=== PATIENT | female | born 1945 | race Caucasian/White ===

== ENCOUNTER → 2017-06-22 | Outpatient (CLI) | payer MEDICARE ==
[~2017-06-22] MED LIST: ASP81TEC PO; FEXO180T PO; FLUO20CA42 PO; GLUC1CAP45 PO; HYDR25CA5 PO; METO-333 PO; METO50TA7 PO; NIAC250T17 PO; NICIAN PO; OMEG1CAP51 PO; OMEG1CAP74 PO; OMG1KC PO; PREN1TAB64 PO; SIMV80TA3 PO; TRAV5DRO2 OU; VNL37.5T PO; [UNRECOGNIZED DRUG - OTHER]
--- NOTE | 2017-06-23 13:44 | Diagnostic Imaging Report ---
Bilateral screening mammogram 2D views with tomosynthesis The current study was also evaluated with a Computer Aided Detection (CAD) system. INDICATION: Screening. No current complaints stated on the questionnaire. COMPARISON: 02/09/2015. FINDINGS: The breasts are composed of heterogeneously dense parenchyma which may decrease mammographic sensitivity. There is no mass, architectural distortion, or suspicious cluster of calcifications seen. Allowing for technique and positional differences, no suspicious change is seen. IMPRESSION: No significant change. ACR BI-RADS Category 2: Benign findings. Result letter will be mailed to the patient. Note: At least 10% of breast cancer is not imaged by mammography. Dictated on workstation # [id number]
== END ==
LOC: RAD 10:35
PROVIDERS: ATTEND Family Medicine
DX: Z12.31 Encounter for screening mammogram for malignant neoplasm of breast (principal)
CPT/HCPCS: 77067

== ENCOUNTER → 2018-07-11 | Outpatient (CLI) | payer MEDICARE ==
--- NOTE | 2018-07-11 12:05 | Diagnostic Imaging Report ---
INDICATION: Routine screening. COMPARISON: Comparison is made with prior mammograms from 06/22/2017 and 02/09/2015. TECHNIQUE: 2D and 3D bilateral screening mammography was performed with computer-aided detection (CAD) system. FINDINGS: Both breasts are heterogeneously dense, limiting the sensitivity of mammography. An ovoid nodular density in the central left breast on the CC view appears stable and most consistent with benign etiology. There is some nodularity to the outer portion of the left breast on the CC view at posterior depth, which appears more prominent when compared with prior exams. Additional views of this area are recommended. No definite correlate on the MLO view is seen. No suspicious calcifications are identified. The axillae are unremarkable. IMPRESSION: Left breast density. Additional views are recommended for further evaluation. ACR BI-RADS Category 0: Incomplete. (Needs additional imaging evaluation). Result letter will be mailed to the patient. Note: At least 10% of breast cancer is not imaged by mammography. Dictated by: Dictated on workstation # [id number]
== END ==
LOC: RAD 10:35
PROVIDERS: ATTEND Family Medicine
DX: Z12.31 Encounter for screening mammogram for malignant neoplasm of breast (principal); R92.8 Other abnormal and inconclusive findings on diagnostic imaging of breast
CPT/HCPCS: 77067

== ENCOUNTER → 2018-08-13 | Outpatient (CLI) | payer MEDICARE ==
--- NOTE | 2018-08-13 15:45 | Diagnostic Imaging Report ---
Indication: Left breast density. Patient presents for additional views. Correlation is made with recent screening mammogram from 07/11/2018. Unilateral left 2-D and 3-D diagnostic mammography was performed including spot compression cc and ML views as well as 90 degree lateral view and rolled cc views. There is mild residual density in the outer aspect of the left breast which appears to be inferiorly located on the tomographic images. Further evaluation of this area with ultrasound is recommended. No suspicious calcifications are seen. Impression: BI-RADS zero Mild residual density in the lower outer left breast posterior depth 10 cm from the nipple after additional views. Further evaluation with ultrasound is recommended. ACR BI-RADS Category 0: Incomplete. (Needs additional imaging evaluation). Result letter will be mailed to the patient. Note: At least 10% of breast cancer is not imaged by mammography. Dictated by: Dictated on workstation # [id number]
--- NOTE | 2018-08-13 20:30 | Diagnostic Imaging Report ---
INDICATION: Right breast nodularity. Correlation is made with diagnostic mammogram earlier the same day and screening mammogram from 07/11/2018. Sonographic interrogation of the lower outer left breast was performed. No sonographic abnormality is seen. No solid or cystic mass is detected. IMPRESSION: BI-RADS 1. No sonographic abnormality is seen. The patient may return to routine annual screening mammography. ACR BI-RADS Category 1: Negative. Result letter will be mailed to the patient. Note: At least 10% of breast cancer is not imaged by mammography. Dictated by: Dictated on workstation # [id number]
== END ==
LOC: RAD 14:03
PROVIDERS: ATTEND Family Medicine
DX: R92.2 Inconclusive mammogram (principal)
CPT/HCPCS: 76642

== ENCOUNTER 2019-03-26 12:47 | Observation (INO) | payer MEDICARE ==
[~2019-03-26] VITALS: Ht 165.1 cm; Wt 76.2 kg
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
[2019-03-26 13:06] LABS: BASOPHILS % (AUTO) 1 % (0-10); EOSINOPHILS # (AUTO) 0.1 10^3/uL (0.0-0.3); EOSINOPHILS % (AUTO) 1 % (0-10); HEMATOCRIT 40 % (35-52); HEMOGLOBIN 13.1 G/DL (11.5-16.0); LYMPHOCYTES # (AUTO) 1.8 X 10^3 (1.0-4.0); LYMPHOCYTES % (AUTO) 21 % (12-44); MEAN CORPUSCULAR HEMOGLOBIN 29 PG (25-34); MEAN CORPUSCULAR HGB CONC 33 G/DL (32-36); MEAN CORPUSCULAR VOLUME 88 FL (80-99); MEAN PLATELET VOLUME 9.4 FL (7.4-10.4); MONOCYTES # (AUTO) 0.7 X 10^3 (0.0-1.0); MONOCYTES % (AUTO) 8 % (0-12); NEUTROPHILS # (AUTO) 5.8 X 10^3 (1.8-7.8); NEUTROPHILS % (AUTO) 70 % (42-75); PLATELET COUNT 253 10^3/uL (130-400); RED CELL DISTRIBUTION WIDTH 13.6 % (10.0-14.5); WHITE BLOOD COUNT 8.4 10^3/uL (4.3-11.0)
--- OUTSIDE RECORDS SUMMARY | 2019-03-26 13:13 | XMS REPORT | Clinical Summary ---
Author Author [facility] Organization [facility] Address Unknown Phone Unavailable Care Team Providers Care Yield Analyst Name Role Phone ZackMiles PCP Sammy Nuñez MD 21 Source Comments Some departments are not documenting in the electronic medical record. If you d o not see the information that you expected, contact Release of Information in [facility] [employer] Information Management department at [phone] for further assistan ce in locating additional records.[facility] Allergies Comments Active Allergy Reactions Severity Noted Date Adhesive Tape (Rosins) RASH Medium 06/21/2017 Medications End Date Status Medication Sig Dispensed Refills Start Date Active LORazepam (ATIVAN) 0.5 mg Take 1 tablet 0 tablet by mouth every 6 hours as needed for Nausea. Active lamoTRIgine (LAMICTAL) Take 100 mg 0 100 mg tablet by mouth daily. Active venlafaxine XR (EFFEXOR Take 150 mg 0 XR) 150 mg capsule by mouth daily. Take with food. Active brexpiprazole 2 mg tab Take by 0 mouth. Active simvastatin (ZOCOR) 20 mg Take 20 mg by 0 tablet mouth at bedtime daily. Active docusate (COLACE) 100 mg Take 100 mg 0 capsule by mouth twice daily. Active memantine (NAMENDA) 10 mg Take 10 mg by 0 tablet mouth twice daily. Active omeprazole DR(+) Take 20 mg by 0 (PRILOSEC) 20 mg capsule mouth daily before breakfast. Active aspirin 81 mg chewable Chew 81 mg by 0 tablet mouth daily. Take with food. Active DOCOSAHEXANOIC ACID/EPA Take by 0 (FISH OIL PO) mouth. Active MULTIVITAMIN PO Take by 0 mouth. Active lisinopril (PRINIVIL; Take 10 mg by 0 ZESTRIL) 10 mg tablet mouth daily. Active Problems Not on file Family History Medical History Relation Name Comments Heart Disease Brother Hypertension Brother Arthritis-osteo Maternal Aunt Cancer-Breast Maternal Aunt Hypertension Maternal Aunt Arthritis-osteo Mother Asthma Mother Cancer-Breast Mother Cancer-Lung Mother Hypertension Mother Cancer-Breast Sister Hypertension Sister Relation Name Status Comments Brother Maternal Aunt Mother Sister Social History Date Tobacco Use Types Packs/Day Years Used Never Smoker Smokeless Tobacco: Never Used Drinks/Week oz/Week Comments Alcohol Use No Sex Assigned at Date Recorded Not on file Industry Job Start Date Occupation Not on file Not on file Not on file Travel End Travel History Travel Start No recent travel history available. Last Filed Vital Signs Reading Time Taken Comments Vital Sign 120/57 06/21/2017 10:19 AM CDT Blood Pressure 70 06/21/2017 10:19 AM CDT Pulse 36.7 C (98 F) 06/21/2017 9:59 AM CDT Temperature 14 06/13/2017 1:40 PM CDT Respiratory Rate 96% 06/21/2017 10:19 AM CDT Oxygen Saturation - - Inhaled Oxygen Concentration 71.7 kg (158 lb) 06/21/2017 8:46 AM CDT Weight 162.6 cm (5' 4") 06/21/2017 8:46 AM CDT Height 27.12 06/21/2017 8:46 AM CDT Body Mass Index Plan of Treatment Health Maintenance Due Date Last Done Comments PHYSICAL (COMPREHENSIVE) 1950 EXAM DTAP/TDAP VACCINES (1 - 1961 Tdap) COLORECTAL CANCER 1993 SCREENING SHINGLES RECOMBINANT 1993 VACCINE (1 of 2) OSTEOPOROSIS 2008 SCREENING/MONITORING PNEUMONIA (PCV13/PPSV23) 2008 VACCINES (1 of 2 - PCV13) INFLUENZA VACCINE 06/11/2019 Results Not on filefrom Last 3 Months Insurance Type Payer Benefit Subscriber ID Effective Phone Address Plan / Dates Group Medicare MEDICARE MEDICARE xxxxxxxxxx 2008-P PART A AND resent B PPO [facility] xxxxxxxxxxx 2016-P resent Advance Directives Patient Email Production Consultant Explanation Type Date Recorded Advance Directive/DPOA
--- OUTSIDE RECORDS SUMMARY | 2019-03-26 13:13 | XMS REPORT ---
Author Author NASIM SINGH Organization [facility] Address [address] [place] [address] Care Team Providers Care Manager In Home Name Role Phone SAMANTHAELGINNASIM Unavailable PROBLEMS Type Condition ICD9-CM Code [id number] Code Onset Dates Condition Status SNOMED Code Problem Bipolar I disorder with anxious distress F31.9 Active [id number] ALLERGIES No Information ENCOUNTERS Encounter Location Date Diagnosis [facility] [id number] [place] [phone] May, Bipolar I disorder with anxious distress F31.9 [facility] [id number] [place] [address] Apr, Bipolar I disorder with anxious distress F31.9 [facility] [id number] [place] [address] Mar, Bipolar I disorder with anxious distress F31.9 [facility] [id number] [place] [address] Feb, Bipolar I disorder with anxious distress F31.9 [facility] [id number] [place] [address] Dec, Bipolar I disorder with anxious distress F31.9 [facility] [id number] [place] [address] Nov, Bipolar I disorder with anxious distress F31.9 [facility] [id number] [place] [address] Oct, Bipolar I disorder with anxious distress F31.9 [facility] [id number] [place] [address] Sep, Bipolar I disorder with anxious distress F31.9 [facility] [address] [facility] [id number] [address] Jul, Bipolar I disorder with anxious distress F31.9 [facility] [address] [address] Jun, Bipolar I disorder with anxious distress F31.9 [facility] [address] [address] Jun, Bipolar I disorder with anxious distress F31.9 [facility] [id number] [place] [phone] Apr, Bipolar I disorder with anxious distress F31.9 [facility] [id number] [place] [phone] Mar, Bipolar I disorder with anxious distress F31.9 [facility] [id number] [place] [address] Mar, Bipolar II disorder F31.81 [facility] [address] [address] Feb, [facility] [id number] [place] [address] Feb, Bipolar II disorder F31.81 [facility] [address] [address] January, Bipolar II disorder F31.81 [facility] [address] [address] January, Bipolar II disorder F31.81 [facility] [address] [address] January, Bipolar II disorder F31.81 [facility] [address] [address] Dec, Bipolar II disorder F31.81 [facility] [address] [address] Nov, Bipolar II disorder F31.81 [facility] [id number] [address] Jul, Bipolar II disorder F31.81 [facility] [id number] [address] Jun, Bipolar II disorder F31.81 [facility] [address] [address] May, Bipolar II disorder F31.81 [facility] [id number] [address] May, Bipolar II disorder F31.81 [facility] [id number] [place] [address] May, Bipolar II disorder F31.81 [facility] [address] [place] [address] Apr, Bipolar II disorder F31.81 [facility] [address] [address] Apr, Bipolar II disorder F31.81 [facility] [id number] [place] [address] Mar, Bipolar II disorder F31.81 [facility] [address] [address] Mar, Bipolar II disorder F31.81 [facility] [address] [address] Feb, Bipolar II disorder F31.81 [facility] [address] [address] January, Bipolar II disorder F31.81 [facility] [address] [address] January, Bipolar II disorder F31.81 [facility] [address] [address] Dec, Bipolar II disorder F31.81 [facility] [address] [address] Nov, Bipolar II disorder F31.81 [facility] [address] [address] Oct, Bipolar II disorder F31.81 [facility] [address] [address] Oct, Bipolar II disorder F31.81 [facility] [address] [address] Sep, Bipolar II disorder F31.81 [facility] [address] [address] Jul, Bipolar II disorder F31.81 [facility] [address] [address] Jun, Bipolar II disorder F31.81 [facility] [address] [address] Jun, Bipolar II disorder F31.81 [facility] [address] [address] May, Bipolar II disorder 296.89 [facility] [id number] [address] Apr, Bipolar II disorder 296.89 IMMUNIZATIONS No Known Immunizations SOCIAL HISTORY Never Assessed REASON FOR VISIT Follow-up Bipolar Disorder PLAN OF CARE Activity Details Follow Up Next available Reason: Follow-up VITAL SIGNS MEDICATIONS Unknown Medications RESULTS No Results PROCEDURES Procedure Date Ordered Result Body Site [facility] VISIT MENTAL HEALTH ESTAB PT Apr 23, 2018 Psychotherapy, patient &/family, 30 minutes, established patient Apr 23, 2018 INSTRUCTIONS MEDICATIONS ADMINISTERED No Known Medications
--- OUTSIDE RECORDS SUMMARY | 2019-03-26 13:13 | XMS REPORT ---
Author Author NASIM SINGH Organization [facility] Address [address] [place] [address] Care Team Providers Care Coffee Blender Name Role Phone SAMANTHAELGNINASIM Unavailable PROBLEMS Type Condition ICD9-CM Code [id number] Code Onset Dates Condition Status SNOMED Code Problem Bipolar I disorder with anxious distress F31.9 Active [id number] ALLERGIES No Information ENCOUNTERS Encounter Location Date Diagnosis [facility] [id number] [place] [address] May, Bipolar I disorder with anxious distress F31.9 [facility] [id number] [place] [address] Apr, Bipolar I disorder with anxious distress F31.9 [facility] [id number] [place] [address] Mar, Bipolar I disorder with anxious distress F31.9 [facility] [id number] [place] [address] Feb, Bipolar I disorder with anxious distress F31.9 [facility] [id number] [place] [address] Dec, Bipolar I disorder with anxious distress F31.9 [facility] [id number] [place] [address] Nov, Bipolar I disorder with anxious distress F31.9 [facility] [id number] [place] [address] Oct, Bipolar I disorder with anxious distress F31.9 [facility] [id number] [place] [address] Sep, Bipolar I disorder with anxious distress F31.9 [facility] [address] [facility] [id number] [address] Jul, Bipolar I disorder with anxious distress F31.9 [facility] [address] [address] Jun, Bipolar I disorder with anxious distress F31.9 [facility] [address], [place] [address] Jun, Bipolar I disorder with anxious distress F31.9 [facility] [id number] [place] [address] Apr, Bipolar I disorder with anxious distress F31.9 [facility] [address] [place] [address] Mar, Bipolar I disorder with anxious distress F31.9 [facility] [address] [place] [address] Mar, Bipolar II disorder F31.81 [facility] [address] [address] Feb, [facility] [address] [place] [address] Feb, Bipolar II disorder F31.81 [facility] [address] [address] January, Bipolar II disorder F31.81 [facility] [address] [address] January, Bipolar II disorder F31.81 [facility] [address] [address] January, Bipolar II disorder F31.81 [facility] [address] [address] Dec, Bipolar II disorder F31.81 [facility] [address], [place] [address] Nov, Bipolar II disorder F31.81 [facility] [id number] [address] Jul, Bipolar II disorder F31.81 [facility] [id number] [address] Jun, Bipolar II disorder F31.81 [facility] [address], [place] [address] May, Bipolar II disorder F31.81 [facility] [id number] [address] May, Bipolar II disorder F31.81 [facility] [id number] [place] [address] May, Bipolar II disorder F31.81 [facility] [address], [place] [address] Apr, Bipolar II disorder F31.81 [facility] [address], [place] [address] Apr, Bipolar II disorder F31.81 [facility] [address] [place] [address] Mar, Bipolar II disorder F31.81 [facility] [address], [place] [address] Mar, Bipolar II disorder F31.81 [facility] [address], [place] [address] Feb, Bipolar II disorder F31.81 [facility] [address], [place] [address] January, Bipolar II disorder F31.81 [facility] [address], [place] [address] January, Bipolar II disorder F31.81 [facility] [address], [place] [address] Dec, Bipolar II disorder F31.81 [facility] [address], [place] [address] Nov, Bipolar II disorder F31.81 [facility] [address], [place] [address] Oct, Bipolar II disorder F31.81 [facility] [address], [place] [address] Oct, Bipolar II disorder F31.81 [facility] [address], [place] [address] Sep, Bipolar II disorder F31.81 [facility] [address], [place] [address] Jul, Bipolar II disorder F31.81 [facility] [address], [place] [address] Jun, Bipolar II disorder F31.81 [facility] [address], [place] [address] Jun, Bipolar II disorder F31.81 [facility] [address], [place] [address] May, Bipolar II disorder 296.89 [facility] [id number] [address] Apr, Bipolar II disorder 296.89 IMMUNIZATIONS No Known Immunizations SOCIAL HISTORY Never Assessed REASON FOR VISIT Follow-up Bipolar Disorder PLAN OF CARE VITAL SIGNS MEDICATIONS Unknown Medications RESULTS No Results PROCEDURES Procedure Date Ordered Result Body Site [facility] VISIT MENTAL HEALTH ESTAB PT May 29, 2018 Psychotherapy, patient &/family, 30 minutes, established patient May 29, 2018 INSTRUCTIONS MEDICATIONS ADMINISTERED No Known Medications
--- OUTSIDE RECORDS SUMMARY | 2019-03-26 13:14 | XMS REPORT ---
Author Author NASIM SINGH Organization [facility] Address [address] [place] [address] Care Team Providers Care Project Management Consultant Name Role Phone SAMANTHAELGINNASIM Unavailable PROBLEMS Type Condition ICD9-CM Code [id number] Code Onset Dates Condition Status SNOMED Code Problem Bipolar I disorder with anxious distress F31.9 Active [id number] ALLERGIES No Information ENCOUNTERS Encounter Location Date Diagnosis [facility] [id number] [place] [address] May, [place] [id number] [place] [address] Apr, Bipolar I disorder with anxious distress F31.9 [facility] [id number] [place] [address] Mar, Bipolar I disorder with anxious distress F31.9 [facility] [id number] [place] [address] Feb, Bipolar I disorder with anxious distress F31.9 [facility] [id number] [place] [address] Dec, Bipolar I disorder with anxious distress F31.9 [facility] [id number] [place] [address] Nov, Bipolar I disorder with anxious distress F31.9 [facility] [id number] [place] [address] Oct, Bipolar I disorder with anxious distress F31.9 [facility] [id number] [place] [address] Sep, Bipolar I disorder with anxious distress F31.9 [facility] [id number] [address] Jul, Bipolar I disorder with anxious distress F31.9 [facility] [address], [place] [address] Jun, Bipolar I disorder with anxious distress F31.9 [facility] [address], [place] [address] Jun, Bipolar I disorder with anxious distress F31.9 [facility] [id number] [address] Apr, Bipolar I disorder with anxious distress F31.9 [facility] [address] [place] [address] Mar, Bipolar I disorder with anxious distress F31.9 [facility] [address], [place] [address] Mar, Bipolar II disorder F31.81 [facility] [address], [place] [address] Feb, [facility] [address] [place] [address] Feb, Bipolar II disorder F31.81 [facility] [address], [place] [address] January, Bipolar II disorder F31.81 [facility] [address] [address] January, Bipolar II disorder F31.81 [facility] [address], [place] [address] January, Bipolar II disorder F31.81 [facility] [address], [place] [address] Dec, Bipolar II disorder F31.81 [facility] [address], [place] [address] Nov, Bipolar II disorder F31.81 [facility] [address] [facility] [id number] [address] Jul, Bipolar II disorder F31.81 [facility] [address] [facility] [id number], [place] [address] Jun, Bipolar II disorder F31.81 [facility] [id number] [address] May, Bipolar II disorder F31.81 [facility] [address] [facility] [id number] [place] [address] May, Bipolar II disorder F31.81 [facility] [address] [facility] [id number] [place] [address] May, Bipolar II disorder F31.81 [facility] [address], [place] [address] Apr, Bipolar II disorder F31.81 [facility] [address], [place] [address] Apr, Bipolar II disorder F31.81 [facility] [address] [address] Mar, Bipolar II disorder F31.81 [facility] [address], [place] [address] Mar, Bipolar II disorder F31.81 [facility] [address], [place] [address] Feb, Bipolar II disorder F31.81 [facility] [id number] [address] January, Bipolar II disorder F31.81 [facility] [id number] [address] January, Bipolar II disorder F31.81 [facility] [address], [place] [address] Dec, Bipolar II disorder F31.81 [facility] [address], [place] [address] Nov, Bipolar II disorder F31.81 [facility] [address], [place] [address] Oct, Bipolar II disorder F31.81 [facility] [address], [place] [address] Oct, Bipolar II disorder F31.81 [facility] [address], [place] [address] Sep, Bipolar II disorder F31.81 [facility] [address] [place] [address] Jul, Bipolar II disorder F31.81 [facility] [address], [place] [address] Jun, Bipolar II disorder F31.81 [facility] [address], [place] [address] Jun, Bipolar II disorder F31.81 [facility] [address], [place] [address] May, Bipolar II disorder 296.89 [facility] [address], [place] [address] Apr, Bipolar II disorder 296.89 IMMUNIZATIONS No Known Immunizations SOCIAL HISTORY Never Assessed REASON FOR VISIT Follow-up Bipolar Disorder PLAN OF CARE Activity Details Follow Up 4 Weeks Reason: Follow-up VITAL SIGNS MEDICATIONS Unknown Medications RESULTS No Results PROCEDURES Procedure Date Ordered Result Body Site [facility] VISIT MENTAL HEALTH ESTAB PT March 15, 2018 Psychotherapy, patient &/family, 30 minutes, established patient March 15, 2018 INSTRUCTIONS MEDICATIONS ADMINISTERED No Known Medications
--- OUTSIDE RECORDS SUMMARY | 2019-03-26 13:14 | XMS REPORT ---
Author Author NASIM SINGH Organization [facility] Address [address] [place] [address] Care Team Providers Care Pill Machine Operator Name Role Phone SAMANTHAELGINNASIM Unavailable PROBLEMS Type Condition ICD9-CM Code [id number] Code Onset Dates Condition Status SNOMED Code Problem Bipolar I disorder with anxious distress F31.9 Active [id number] ALLERGIES No Information ENCOUNTERS Encounter Location Date Diagnosis [place] [id number] [place] [address] Mar, [place] [id number] [place] [address] Feb, Bipolar I disorder with anxious distress F31.9 [facility] [id number] [place] [address] Dec, Bipolar I disorder with anxious distress F31.9 [facility] [id number] [place] [address] Nov, Bipolar I disorder with anxious distress F31.9 [facility] [id number] [place] [address] Oct, Bipolar I disorder with anxious distress F31.9 [facility] [id number] [place] [address] Sep, Bipolar I disorder with anxious distress F31.9 [facility] [id number] [place] [address] Jul, Bipolar I disorder with anxious distress F31.9 [facility] [id number] [place] [address] Jun, Bipolar I disorder with anxious distress F31.9 [facility] [id number] [address] Jun, Bipolar I disorder with anxious distress F31.9 [facility] [address] [facility] [id number] [place] [address] Apr, Bipolar I disorder with anxious distress F31.9 [facility] [id number] [place] [address] Mar, Bipolar I disorder with anxious distress F31.9 [facility] [address] [facility] [id number] [address] Mar, Bipolar II disorder F31.81 [facility] [address] [id number] [place] [address] Feb, [facility] [address] [facility] [id number] [address] Feb, Bipolar II disorder F31.81 [facility] [address] [place] [address] January, Bipolar II disorder F31.81 [facility] [id number] [address] January, Bipolar II disorder F31.81 [facility] [id number] [address] January, Bipolar II disorder F31.81 [facility] [address] [address] Dec, Bipolar II disorder F31.81 [facility] [id number] [address] Nov, Bipolar II disorder F31.81 [facility] [id number] [address] Jul, Bipolar II disorder F31.81 [facility] [id number] [address] Jun, Bipolar II disorder F31.81 [facility] [address] [facility] [id number] [address] May, Bipolar II disorder F31.81 [facility] [address] [facility] [id number] [place] [address] May, Bipolar II disorder F31.81 [facility] [address] [id number] [place] [address] May, Bipolar II disorder F31.81 [facility] [address] [id number] [place] [address] Apr, Bipolar II disorder F31.81 [facility] [id number] [place] [address], [place] [address] Apr, Bipolar II disorder F31.81 [facility] [address] [place] [address] Mar, Bipolar II disorder F31.81 [facility] [address] [address] Mar, Bipolar II disorder F31.81 [facility] [address] [place] [address] Feb, Bipolar II disorder F31.81 [facility] [address] [address] January, Bipolar II disorder F31.81 [facility] [address] [address] January, Bipolar II disorder F31.81 [facility] [address] [address] Dec, Bipolar II disorder F31.81 [facility] [id number] [address] Nov, Bipolar II disorder F31.81 [facility] [address] [address] Oct, Bipolar II disorder F31.81 [facility] [id number] [address] 08 Oct, 2015 Bipolar II disorder F31.81 [facility] [address] [address] Sep, Bipolar II disorder F31.81 [facility] [address] [address] Jul, Bipolar II disorder F31.81 [facility] [address] [address] Jun, Bipolar II disorder F31.81 [facility] [address] [place] [address] Jun, Bipolar II disorder F31.81 [facility] [address] [address] May, Bipolar II disorder 296.89 [facility] [address] [address] Apr, Bipolar II disorder 296.89 IMMUNIZATIONS No Known Immunizations SOCIAL HISTORY Never Assessed REASON FOR VISIT Follow-up Bipolar Disorder PLAN OF CARE Activity Details Follow Up Next available Reason: Follow-up VITAL SIGNS MEDICATIONS Unknown Medications RESULTS No Results PROCEDURES Procedure Date Ordered Result Body Site [facility] VISIT MENTAL HEALTH ESTAB PT Oct 23, 2017 Psychotherapy, patient &/family, 30 minutes, established patient Oct 23, 2017 INSTRUCTIONS MEDICATIONS ADMINISTERED No Known Medications
--- OUTSIDE RECORDS SUMMARY | 2019-03-26 13:14 | XMS REPORT ---
Author RADHA Doyle [facility] e[employer] Address Unknown Phone Unavailable Care Team Providers Care Branch Credit Counselor Name Role Phone RADHA LEUNG CP Unavailable Allergies No Known Allergies Problems Problem Type Condition Code Onset Dates Condition Status Assessment Bipolar II disorder F31.81 Active Problem Bipolar II disorder F31.81 Active Medications No Known Medications Procedures Procedure Coding System Code Date Psychotherapy, patient &/family, 45 minutes, established patient CPT-4 09730 Jun 23, 2016 [facility] VISIT MENTAL HEALTH ESTAB PT CPT-4 G0470 Jun 23, 2016 Results No Known Results Summary Purpose eClinicalWorks Submission
--- OUTSIDE RECORDS SUMMARY | 2019-03-26 13:14 | XMS REPORT ---
Author Author RADHA LEUNG Organization [facility] Address [address] [place] [address] Care Team Providers Care Brim Cutter Name Role Phone RADHA LEUNG Unavailable PROBLEMS Type Condition ICD9-CM Code [id number] Code Onset Dates Condition Status SNOMED Code Problem Bipolar II disorder F31.81 Active [id number] Assessment Bipolar II disorder F31.81 May, Active [id number] ALLERGIES Unknown Allergies SOCIAL HISTORY No smoking Hx information available PLAN OF CARE VITAL SIGNS MEDICATIONS Unknown Medications RESULTS No Results PROCEDURES Procedure Date Ordered Related Diagnosis Body Site [facility] VISIT MENTAL HEALTH ESTAB PT May 26, 2016 Psychotherapy, patient &/family, 45 minutes, established patient May 26, 2016 IMMUNIZATIONS No Known Immunizations
--- OUTSIDE RECORDS SUMMARY | 2019-03-26 13:14 | XMS REPORT ---
Author Author RADHA LEUNG [facility] eClinical[employer] Address Unknown Phone Unavailable Care Team Providers Care Salon Coordinator Name Role Phone RADHA LEUNG CP Unavailable Allergies No Known Allergies Problems Problem Type Condition Code Onset Dates Condition Status Assessment Bipolar II disorder F31.81 Active Problem Bipolar II disorder F31.81 Active Medications No Known Medications Procedures Procedure Coding System Code Date Psychotherapy, patient &/family, 45 minutes, established patient CPT-4 85288 March 16, 2016 [facility] VISIT MENTAL HEALTH ESTAB PT CPT-4 G0470 March 16, 2016 Results No Known Results Summary Purpose eClinicalWorks Submission
--- OUTSIDE RECORDS SUMMARY | 2019-03-26 13:14 | XMS REPORT ---
Author RADHA Doyle [facility] eClinical[employer] Address Unknown Phone Unavailable Care Team Providers Care Melter Caster Name Role Phone RADHA LEUNG CP Unavailable Allergies No Known Allergies Problems Problem Type Condition Code Onset Dates Condition Status Assessment Bipolar II disorder F31.81 Active Problem Bipolar II disorder F31.81 Active Medications No Known Medications Procedures Procedure Coding System Code Date Psychotherapy, patient &/family, 45 minutes, established patient CPT-4 08133 Jul 28, 2016 [facility] VISIT MENTAL HEALTH ESTAB PT CPT-4 G0470 Jul 28, 2016 Results No Known Results Summary Purpose eClinicalWorks Submission
--- OUTSIDE RECORDS SUMMARY | 2019-03-26 13:14 | XMS REPORT ---
Author Author RADHA LEUNG [facility] eClinical[employer] Address Unknown Phone Unavailable Care Team Providers Care Wood Sash And Frame Carpenter Name Role Phone RADHA LEUNG CP Unavailable Allergies No Known Allergies Problems Problem Type Condition Code Onset Dates Condition Status Assessment Bipolar II disorder F31.81 Active Problem Bipolar II disorder F31.81 Active Medications No Known Medications Procedures Procedure Coding System Code Date Psychotherapy, patient &/family, 45 minutes, established patient CPT-4 98642 Oct 19, 2015 [facility] VISIT MENTAL HEALTH ESTAB PT CPT-4 G0470 Oct 19, 2015 Results No Known Results Summary Purpose eClinicalWorks Submission
--- OUTSIDE RECORDS SUMMARY | 2019-03-26 13:14 | XMS REPORT ---
Author Author NASIM SINGH [facility] Address [facility] [place] [address] Care Team Providers Care Small Package And Bundle Sorter Clerk Name Role Phone NASIM SINGH Unavailable PROBLEMS Type Condition ICD9-CM Code [id number] Code Onset Dates Condition Status SNOMED Code Problem Bipolar I disorder with anxious distress F31.9 Active [id number] ALLERGIES No Information SOCIAL HISTORY Never Assessed PLAN OF CARE Activity Details Follow Up 2 Weeks Reason: Follow-up VITAL SIGNS MEDICATIONS Unknown Medications RESULTS No Results PROCEDURES Procedure Date Ordered Result Body Site [facility] MENT[facility] HEALTH ESTAB PT February 08, 2017 Psychotherapy, patient &/family, 45 minutes, established patient February 08, 2017 IMMUNIZATIONS No Known Immunizations
--- OUTSIDE RECORDS SUMMARY | 2019-03-26 13:14 | XMS REPORT ---
Author Author NASIM SINGH Organization [facility] Address [address] [place] [address] Care Team Providers Care Transitional Living Specialist Name Role Phone SAMANTHAELGINNASIM Unavailable PROBLEMS Type Condition ICD9-CM Code [id number] Code Onset Dates Condition Status SNOMED Code Problem Bipolar I disorder with anxious distress F31.9 Active [id number] ALLERGIES No Information ENCOUNTERS Encounter Location Date Diagnosis [facility] [id number] [place] [address] Apr, [place] [id number] [place] [address] Mar, Bipolar I disorder with anxious distress F31.9 [facility] [id number] [place] [address] Feb, Bipolar I disorder with anxious distress F31.9 [facility] [id number] [place] [address] Dec, Bipolar I disorder with anxious distress F31.9 [facility] [id number] [place] [address] Nov, Bipolar I disorder with anxious distress F31.9 [facility] [id number] [place] [address] Oct, Bipolar I disorder with anxious distress F31.9 [facility] [id number] [place] [address] Sep, Bipolar I disorder with anxious distress F31.9 [facility] [id number] [place] [address] Jul, Bipolar I disorder with anxious distress F31.9 [facility] [id number] [address] Jun, Bipolar I disorder with anxious distress F31.9 [facility] [address] [place] [address] Jun, Bipolar I disorder with anxious distress F31.9 [facility] [address] [address] Apr, Bipolar I disorder with anxious distress F31.9 [facility] [address] [address] Mar, Bipolar I disorder with anxious distress F31.9 [facility] [address] [place] [address] Mar, Bipolar II disorder F31.81 [facility] [address] [address] Feb, [facility] [address] [place] [address] Feb, Bipolar II disorder F31.81 [facility] [address] [place] [address] January, Bipolar II disorder F31.81 [facility] [address] [address] January, Bipolar II disorder F31.81 [facility] [address] [address] January, Bipolar II disorder F31.81 [facility] [address] [address] Dec, Bipolar II disorder F31.81 [facility] [address] [place] [address] Nov, Bipolar II disorder F31.81 [facility] [address] [address] Jul, Bipolar II disorder F31.81 [facility] [id number] [address] Jun, Bipolar II disorder F31.81 [facility] [id number] [address] May, Bipolar II disorder F31.81 [facility] [address] [place] [address] May, Bipolar II disorder F31.81 [facility] [id number] [place] [address], [place] [address] May, Bipolar II disorder F31.81 [facility] [id number] [place] [address], [place] [address] Apr, Bipolar II disorder F31.81 [facility] [address] [place] [address] Apr, Bipolar II disorder F31.81 [facility] [address] [place] [address] Mar, Bipolar II disorder F31.81 [facility] [address] [place] [address] Mar, Bipolar II disorder F31.81 [facility] [address] [address] Feb, Bipolar II disorder F31.81 [facility] [address] [place] [address] January, Bipolar II disorder F31.81 [facility] [id number] [address] January, Bipolar II disorder F31.81 [facility] [id number] [address] Dec, Bipolar II disorder F31.81 [facility] [address] [address] Nov, Bipolar II disorder F31.81 [facility] [address] [address] Oct, Bipolar II disorder F31.81 [facility] [address] [address] Oct, Bipolar II disorder F31.81 [facility] [address] [place] [address] Sep, Bipolar II disorder F31.81 [facility] [address] [place] [address] Jul, Bipolar II disorder F31.81 [facility] [id number] [place] [address] Jun, Bipolar II disorder F31.81 [facility] [address] [place] [address] Jun, Bipolar II disorder F31.81 [facility] [address] [place] [address] May, Bipolar II disorder 296.89 [facility] [address] [place] [address] Apr, Bipolar II disorder 296.89 IMMUNIZATIONS No Known Immunizations SOCIAL HISTORY Never Assessed REASON FOR VISIT Follow-up Bipolar Disorder PLAN OF CARE Activity Details Follow Up 4 Weeks Reason: Follow-up VITAL SIGNS MEDICATIONS Unknown Medications RESULTS No Results PROCEDURES Procedure Date Ordered Result Body Site [facility] VISIT MENTAL HEALTH ESTAB PT January 08, 2018 Psychotherapy, patient &/family, 30 minutes, established patient January 08, 2018 INSTRUCTIONS MEDICATIONS ADMINISTERED No Known Medications
--- OUTSIDE RECORDS SUMMARY | 2019-03-26 13:14 | XMS REPORT ---
Author Author NASIM SINGH Organization [facility] Address [address] [place] [address] Care Team Providers Care Trolley Car Operator Name Role Phone SAMANTHAELGINNASIM Unavailable PROBLEMS Type Condition ICD9-CM Code COG12-OJ Code Onset Dates Condition Status SNOMED Code Problem Bipolar I disorder with anxious distress F31.9 Active [id number] ALLERGIES No Information ENCOUNTERS Encounter Location Date Diagnosis [facility] [id number] [place] [address] Apr, [place] [id number] [place] [address] Mar, Bipolar I disorder with anxious distress F31.9 [facility] [id number] [place] [address] Feb, Bipolar I disorder with anxious distress F31.9 [facility] [id number] [place] [address] Dec, Bipolar I disorder with anxious distress F31.9 [facility] [id number] [place] [address] Nov, Bipolar I disorder with anxious distress F31.9 [facility] [id number] [place] [address] Oct, Bipolar I disorder with anxious distress F31.9 [facility] [id number] [place] [address] Sep, Bipolar I disorder with anxious distress F31.9 [facility] [id number] [place] [address] Jul, Bipolar I disorder with anxious distress F31.9 [facility] [id number], [place] [address] Jun, Bipolar I disorder with anxious distress F31.9 [facility] [address] [place] [address] Jun, Bipolar I disorder with anxious distress F31.9 [facility] [address], [place] [address] Apr, Bipolar I disorder with anxious distress F31.9 [facility] [address], [place] [address] Mar, Bipolar I disorder with anxious distress F31.9 [facility] [address] [place] [address] Mar, Bipolar II disorder F31.81 [facility] [address], [place] [address] Feb, [facility] [address] [place] [address] Feb, Bipolar II disorder F31.81 [facility] [address] [place] [address] January, Bipolar II disorder F31.81 [facility] [address], [place] [address] January, Bipolar II disorder F31.81 [facility] [address], [place] [address] January, Bipolar II disorder F31.81 [facility] [address], [place] [address] Dec, Bipolar II disorder F31.81 [facility] [address] [place] [address] Nov, Bipolar II disorder F31.81 [facility] [address], [place] [address] Jul, Bipolar II disorder F31.81 [facility] [id number], [place] [address] Jun, Bipolar II disorder F31.81 [facility] [id number], [place] [address] May, Bipolar II disorder F31.81 [facility] [address] [place] [address] May, Bipolar II disorder F31.81 [facility] [id number] [place] [address], [place] [address] May, Bipolar II disorder F31.81 [facility] [id number] [place] [address], [place] [address] Apr, Bipolar II disorder F31.81 [facility] [address] [place] [address] Apr, Bipolar II disorder F31.81 [facility] [address] [place] [address] Mar, Bipolar II disorder F31.81 [facility] [address] [place] [address] Mar, Bipolar II disorder F31.81 [facility] [address], [place] [address] Feb, Bipolar II disorder F31.81 [facility] [address] [place] [address] January, Bipolar II disorder F31.81 [facility] [id number], [place] [address] January, Bipolar II disorder F31.81 [facility] [id number], [place] [address] Dec, Bipolar II disorder F31.81 [facility] [address], [place] [address] Nov, Bipolar II disorder F31.81 [facility] [address], [place] [address] Oct, Bipolar II disorder F31.81 [facility] [address], [place] [address] Oct, Bipolar II disorder F31.81 [facility] [address] [place] [address] Sep, Bipolar II disorder F31.81 [facility] [id number] [place] [address] Jul, Bipolar II disorder F31.81 [facility] [id number] [place] [address] Jun, Bipolar II disorder F31.81 [facility] [address] [place] [address] Jun, Bipolar II disorder F31.81 [facility] [address] [place] [address] May, Bipolar II disorder 296.89 [facility] [address] [place] [address] Apr, Bipolar II disorder 296.89 IMMUNIZATIONS No Known Immunizations SOCIAL HISTORY Never Assessed REASON FOR VISIT Follow-up Bipolar Disorder PLAN OF CARE Activity Details Follow Up 4 Weeks Reason: Follow-up VITAL SIGNS MEDICATIONS Unknown Medications RESULTS No Results PROCEDURES Procedure Date Ordered Result Body Site [facility] VISIT MENTAL HEALTH ESTAB PT December 04, 2017 Psychotherapy, patient &/family, 45 minutes, established patient December 04, 2017 INSTRUCTIONS MEDICATIONS ADMINISTERED No Known Medications
--- OUTSIDE RECORDS SUMMARY | 2019-03-26 13:14 | XMS REPORT ---
Author Author NASIM SINGH Organization [facility] Address [address] [place] [address] Care Team Providers Care Compensation Coordinator Name Role Phone SAMANTHAELGINNASIM Unavailable PROBLEMS Type Condition ICD9-CM Code NDG53-UP Code Onset Dates Condition Status SNOMED Code Problem Bipolar I disorder with anxious distress F31.9 Active [id number] ALLERGIES No Information ENCOUNTERS Encounter Location Date Diagnosis [facility] [id number] [place] [address] May, [place] [id number] [place] [address] Apr, Bipolar I disorder with anxious distress F31.9 [facility] [id number] [place] [address] Mar, Bipolar I disorder with anxious distress F31.9 [facility] [id number] [place] [address] Feb, Bipolar I disorder with anxious distress F31.9 [facility] [id number] [place] [address] Dec, Bipolar I disorder with anxious distress F31.9 [facility] [id number] [place] [address] Nov, Bipolar I disorder with anxious distress F31.9 [facility] [id number] [place] [address] Oct, Bipolar I disorder with anxious distress F31.9 [facility] [id number] [place] [address] Sep, Bipolar I disorder with anxious distress F31.9 [facility] [id number] [address] Jul, Bipolar I disorder with anxious distress F31.9 [facility] [address], [place] [address] Jun, Bipolar I disorder with anxious distress F31.9 [facility] [address], [place] [address] Jun, Bipolar I disorder with anxious distress F31.9 [facility] [id number] [address] Apr, Bipolar I disorder with anxious distress F31.9 [facility] [address] [place] [address] Mar, Bipolar I disorder with anxious distress F31.9 [facility] [address], [place] [address] Mar, Bipolar II disorder F31.81 [facility] [address], [place] [address] Feb, [facility] [address] [place] [address] Feb, Bipolar II disorder F31.81 [facility] [address], [place] [address] January, Bipolar II disorder F31.81 [facility] [address], [place] [address] January, Bipolar II disorder F31.81 [facility] [address], [place] [address] January, Bipolar II disorder F31.81 [facility] [address], [place] [address] Dec, Bipolar II disorder F31.81 [facility] [address], [place] [address] Nov, Bipolar II disorder F31.81 [facility] [address] [facility] [id number] [address] Jul, Bipolar II disorder F31.81 [facility] [address] [facility] [id number] [address] Jun, Bipolar II disorder F31.81 [facility] [id number] [address] May, Bipolar II disorder F31.81 [facility] [address] [facility] [id number] [place] [address] May, Bipolar II disorder F31.81 [facility] [address] [facility] [id number] [place] [address] May, Bipolar II disorder F31.81 [facility] [address], [place] [address] Apr, Bipolar II disorder F31.81 [facility] [address], [place] [address] Apr, Bipolar II disorder F31.81 [facility] [address] [place] [address] Mar, Bipolar II disorder F31.81 [facility] [address], [place] [address] Mar, Bipolar II disorder F31.81 [facility] [address], [place] [address] Feb, Bipolar II disorder F31.81 [facility] [id number] [address] January, Bipolar II disorder F31.81 [facility] [id number] [address] January, Bipolar II disorder F31.81 [facility] [address], [place] [address] Dec, Bipolar II disorder F31.81 [facility] [address], [place] [address] Nov, Bipolar II disorder F31.81 [facility] [address], [place] [address] Oct, Bipolar II disorder F31.81 [facility] [address], [place] [address] Oct, Bipolar II disorder F31.81 [facility] [address], [place] [address] Sep, Bipolar II disorder F31.81 [facility] [address] [place] [address] Jul, Bipolar II disorder F31.81 [facility] [address], [place] [address] Jun, Bipolar II disorder F31.81 [facility] [address], [place] [address] Jun, Bipolar II disorder F31.81 [facility] [address], [place] [address] May, Bipolar II disorder 296.89 [facility] [address], [place] [address] Apr, Bipolar II disorder 296.89 IMMUNIZATIONS No Known Immunizations SOCIAL HISTORY Never Assessed REASON FOR VISIT Follow-up Bipolar Disorder PLAN OF CARE Activity Details Follow Up 4 Weeks Reason: Follow-up VITAL SIGNS MEDICATIONS Unknown Medications RESULTS No Results PROCEDURES Procedure Date Ordered Result Body Site [facility] VISIT MENTAL HEALTH ESTAB PT February 13, 2018 Psychotherapy, patient &/family, 30 minutes, established patient February 13, 2018 INSTRUCTIONS MEDICATIONS ADMINISTERED No Known Medications
--- OUTSIDE RECORDS SUMMARY | 2019-03-26 13:15 | XMS REPORT ---
Author Author NASIM SINGH [facility] Address [facility] [place] [address] Care Team Providers Care Tree Sapper Name Role Phone NASIM SINGH Unavailable PROBLEMS Type Condition ICD9-CM Code [id number] Code Onset Dates Condition Status SNOMED Code Problem Bipolar I disorder with anxious distress F31.9 Active [id number] ALLERGIES No Information SOCIAL HISTORY Never Assessed PLAN OF CARE Activity Details Follow Up Next available Reason:BH Follow-up VITAL SIGNS MEDICATIONS Medication Instructions Dosage Frequency Start Date End Date Duration Status BusPIRone HCl Active Lamotrigine Active Venlafaxine HCl ER Active Omeprazole Active Colace Active Simvastatin Active Latanoprost Active Lisinopril Active Lorazepam Active RESULTS No Results PROCEDURES Procedure Date Ordered Result Body Site [facility] VISIT MENTAL HEALTH ESTAB PT November 29, 2016 Psychotherapy, patient &/family, 30 minutes, established patient November 29, 2016 IMMUNIZATIONS No Known Immunizations
--- OUTSIDE RECORDS SUMMARY | 2019-03-26 13:15 | XMS REPORT ---
Author Author NASIM SINGH Organization [facility] Address [address] [place] [address] Care Team Providers Care Rheumatology Nurse Name Role Phone SAMANTHAELGINNASIM Unavailable PROBLEMS Type Condition ICD9-CM Code GZF29-FZ Code Onset Dates Condition Status SNOMED Code Problem Bipolar I disorder with anxious distress F31.9 Active [id number] ALLERGIES No Information ENCOUNTERS Encounter Location Date Diagnosis [facility] [id number] [place] [address] Dec, [place] [id number] [place] [address] Nov, Bipolar I disorder with anxious distress F31.9 [facility] [id number] [place] [address] Oct, Bipolar I disorder with anxious distress F31.9 [facility] [id number] [place] [address] Sep, Bipolar I disorder with anxious distress F31.9 [facility] [id number] [place] [address] Jul, Bipolar I disorder with anxious distress F31.9 [facility] [id number] [place] [address] Jun, Bipolar I disorder with anxious distress F31.9 [facility] [id number] [place] [address] Jun, Bipolar I disorder with anxious distress F31.9 [facility] [id number] [place] [address] Apr, Bipolar I disorder with anxious distress F31.9 [facility] [id number] [address] Mar, Bipolar I disorder with anxious distress F31.9 [facility] [address] [place] [address] Mar, Bipolar II disorder F31.81 [facility] [address] [place] [address] Feb, [facility] [id number] [place] [address] Feb, Bipolar II disorder F31.81 [facility] [address] [place] [address] January, Bipolar II disorder F31.81 [facility] [address] [place] [address] January, Bipolar II disorder F31.81 [facility] [address] [place] [address] January, Bipolar II disorder F31.81 [facility] [address] [place] [address] Dec, Bipolar II disorder F31.81 [facility] [address] [address] Nov, Bipolar II disorder F31.81 [facility] [address] [place] [address] Jul, Bipolar II disorder F31.81 [facility] [address] [address] Jun, Bipolar II disorder F31.81 [facility] [address] [place] [address] 23 May, 2016 Bipolar II disorder F31.81 [facility] [address] [address] 15 May, 2016 Bipolar II disorder F31.81 [facility] [address] [address] May, Bipolar II disorder F31.81 [facility] [address] [place] [address], [place] [address] Apr, Bipolar II disorder F31.81 [facility] [address] [place] [address] Apr, Bipolar II disorder F31.81 [facility] [address] [place] [address] Mar, Bipolar II disorder F31.81 [facility] [address] [place] [address] Mar, Bipolar II disorder F31.81 [facility] [address] [place] [address] Feb, Bipolar II disorder F31.81 [facility] [address] [place] [address] January, Bipolar II disorder F31.81 [facility] [address] [place] [address] January, Bipolar II disorder F31.81 [facility] [address] [address] Dec, Bipolar II disorder F31.81 [facility] [address] [place] [address] Nov, Bipolar II disorder F31.81 [facility] [address] [address] Oct, Bipolar II disorder F31.81 [facility] [address] [place] [address] Oct, Bipolar II disorder F31.81 [facility] [address] [address] Sep, Bipolar II disorder F31.81 [facility] [id number] [address] Jul, Bipolar II disorder F31.81 [facility] [id number] [address] Jun, Bipolar II disorder F31.81 [facility] [id number] [address] Jun, Bipolar II disorder F31.81 [facility] [id number] [address] May, Bipolar II disorder 296.89 [facility] [id number] [address] Apr, Bipolar II disorder 296.89 IMMUNIZATIONS No Known Immunizations SOCIAL HISTORY Never Assessed REASON FOR VISIT Follow-up Bipolar Disorder PLAN OF CARE Activity Details Follow Up Next available Reason: Follow-up VITAL SIGNS MEDICATIONS Unknown Medications RESULTS No Results PROCEDURES Procedure Date Ordered Result Body Site [facility] VISIT MENTAL HEALTH ESTAB PT Apr 18, 2017 Psychotherapy, patient &/family, 45 minutes, established patient Apr 18, 2017 INSTRUCTIONS MEDICATIONS ADMINISTERED No Known Medications
--- OUTSIDE RECORDS SUMMARY | 2019-03-26 13:15 | XMS REPORT ---
Author Author RADHA LEUNG Organization [facility] [place] Address [address] [place] [address] Care Team Providers Care Pasting Inspector Name Role Phone RADHA LEUNG Unavailable PROBLEMS Type Condition ICD9-CM Code [id number] Code Onset Dates Condition Status SNOMED Code Problem Bipolar II disorder F31.81 Active [id number] Assessment Bipolar II disorder F31.81 May, Active 63220995 ALLERGIES Unknown Allergies SOCIAL HISTORY No smoking Hx information available PLAN OF CARE VITAL SIGNS MEDICATIONS Unknown Medications RESULTS No Results PROCEDURES Procedure Date Ordered Related Diagnosis Body Site [facility] VISIT MENTAL HEALTH ESTAB PT Jun 03, 2016 Psychotherapy, patient &/family, 45 minutes, established patient Jun 03, 2016 IMMUNIZATIONS No Known Immunizations
--- OUTSIDE RECORDS SUMMARY | 2019-03-26 13:15 | XMS REPORT ---
Author Author NASIM SINGH Organization [facility] Address [address] [place] [address] Care Team Providers Care Front Office Manager Name Role Phone SAMANTHAELGINNASIM Unavailable PROBLEMS Type Condition ICD9-CM Code CQR45-HK Code Onset Dates Condition Status SNOMED Code Problem Bipolar I disorder with anxious distress F31.9 Active 059369248 ALLERGIES No Information ENCOUNTERS Encounter Location Date Diagnosis [facility] [id number] [place] [address] Dec, [place] [id number] [place] [address] Nov, Bipolar I disorder with anxious distress F31.9 [facility] [id number] [place] [address] Oct, Bipolar I disorder with anxious distress F31.9 [facility] [id number] [place] [address] Sep, Bipolar I disorder with anxious distress F31.9 [facility] [id number] [place] [address] Jul, Bipolar I disorder with anxious distress F31.9 [facility] [id number] [place] [address] Jun, Bipolar I disorder with anxious distress F31.9 [facility] [id number] [place] [address] Jun, Bipolar I disorder with anxious distress F31.9 [facility] [id number] [place] [address] Apr, Bipolar I disorder with anxious distress F31.9 [facility] [address] [address] Mar, Bipolar I disorder with anxious distress F31.9 [facility] [address] [place] [address] Mar, Bipolar II disorder F31.81 [facility] [address] [place] [address] Feb, [facility] [id number] [place] [address] Feb, Bipolar II disorder F31.81 [facility] [address] [place] [address] January, Bipolar II disorder F31.81 [facility] [address] [place] [address] January, Bipolar II disorder F31.81 [facility] [address] [place] [address] January, Bipolar II disorder F31.81 [facility] [address] [place] [address] Dec, Bipolar II disorder F31.81 [facility] [address], [place] [address] Nov, Bipolar II disorder F31.81 [facility] [address] [place] [address] Jul, Bipolar II disorder F31.81 [facility] [address] [address] Jun, Bipolar II disorder F31.81 [facility] [address] [place] [address] 23 May, 2016 Bipolar II disorder F31.81 [facility] [address], [place] [address] 15 May, 2016 Bipolar II disorder F31.81 [facility] [address] [address] May, Bipolar II disorder F31.81 [facility] [address] [place] [address], [place] [address] Apr, Bipolar II disorder F31.81 [facility] [address] [place] [address] Apr, Bipolar II disorder F31.81 [facility] [address] [place] [address] Mar, Bipolar II disorder F31.81 [facility] [address] [place] [address] Mar, Bipolar II disorder F31.81 [facility] [address] [place] [address] Feb, Bipolar II disorder F31.81 [facility] [address] [place] [address] January, Bipolar II disorder F31.81 [facility] [address] [place] [address] January, Bipolar II disorder F31.81 [facility] [address], [place] [address] Dec, Bipolar II disorder F31.81 [facility] [address] [place] [address] Nov, Bipolar II disorder F31.81 [facility] [address], [place] [address] Oct, Bipolar II disorder F31.81 [facility] [address] [place] [address] Oct, Bipolar II disorder F31.81 [facility] [address] [address] Sep, Bipolar II disorder F31.81 [facility] [id number] [address] Jul, Bipolar II disorder F31.81 [facility] [id number] [address] Jun, Bipolar II disorder F31.81 [facility] [id number] [address] Jun, Bipolar II disorder F31.81 [facility] [address], [place] [address] May, Bipolar II disorder 296.89 [facility] [id number], [place] [address] Apr, Bipolar II disorder 296.89 IMMUNIZATIONS No Known Immunizations SOCIAL HISTORY Never Assessed REASON FOR VISIT Follow-up Bipolar Disorder PLAN OF CARE Activity Details Follow Up 2 Weeks Reason: Follow-up VITAL SIGNS MEDICATIONS Unknown Medications RESULTS No Results PROCEDURES Procedure Date Ordered Result Body Site [facility] VISIT MENTAL HEALTH ESTAB PT April 04, 2017 Psychotherapy, patient &/family, 45 minutes, established patient April 04, 2017 INSTRUCTIONS MEDICATIONS ADMINISTERED No Known Medications
--- OUTSIDE RECORDS SUMMARY | 2019-03-26 13:15 | XMS REPORT ---
Author Author RADHA LEUNG Organization [employer] Address Unknown Phone Unavailable Care Team Providers Care Hosiery Mater Name Role Phone RADHA LEUNG CP Unavailable Allergies No Known Allergies Problems Problem Type Condition ICD-9 Code Onset Dates Condition Status Assessment Bipolar II disorder 296.89 Active Medications No Known Medications Procedures Procedure Coding System Code Date Psych diagnostic evaluation, new patient CPT-4 94695 May 08, 2015 [facility] VISIT MENTAL HEALTH NEW PT CPT-4 G0469 May 08, 2015 Results No Known Results Summary Purpose [employer] Submission
--- OUTSIDE RECORDS SUMMARY | 2019-03-26 13:15 | XMS REPORT ---
Author Author RADHA LEUNG [facility] [employer] Address Unknown Phone Unavailable Care Team Providers Care Operating Room Specialist Name Role Phone RADHA LEUNG CP Unavailable Allergies No Known Allergies Problems Problem Type Condition Code Onset Dates Condition Status Assessment Bipolar II disorder F31.81 Active Problem Bipolar II disorder F31.81 Active Medications No Known Medications Procedures Procedure Coding System Code Date Psychotherapy, patient &/family, 45 minutes, established patient CPT-4 11052 Jun 17, 2015 [facility] VISIT MENTAL HEALTH ESTAB PT CPT-4 G0470 Jun 17, 2015 Results No Known Results Summary Purpose [employer] Submission
--- OUTSIDE RECORDS SUMMARY | 2019-03-26 13:15 | XMS REPORT ---
Author Author NASIM SINGH [facility] Address [facility] [place] [address] Care Team Providers Care Training Assistant Name Role Phone NASIM SINGH Unavailable PROBLEMS Type Condition ICD9-CM Code XXL82-QR Code Onset Dates Condition Status SNOMED Code Problem Bipolar I disorder with anxious distress F31.9 Active [id number] ALLERGIES No Information SOCIAL HISTORY Never Assessed PLAN OF CARE Activity Details Follow Up 2 Weeks Reason: Follow-up VITAL SIGNS MEDICATIONS Unknown Medications RESULTS No Results PROCEDURES Procedure Date Ordered Result Body Site [facility] VISIT MENTAL HEALTH ESTAB PT January 11, 2017 Psychotherapy, patient &/family, 45 minutes, established patient January 11, 2017 IMMUNIZATIONS No Known Immunizations
--- OUTSIDE RECORDS SUMMARY | 2019-03-26 13:15 | XMS REPORT ---
Author Author RADHA LEUNG [facility] [employer] Address Unknown Phone Unavailable Care Team Providers Care Vp Medical Name Role Phone RADHA LEUNG CP Unavailable Allergies No Known Allergies Problems Problem Type Condition Code Onset Dates Condition Status Assessment Bipolar II disorder F31.81 Active Problem Bipolar II disorder F31.81 Active Medications No Known Medications Procedures Procedure Coding System Code Date Psychotherapy, patient &/family, 45 minutes, established patient CPT-4 14494 Jul 10, 2015 [facility] VISIT MENTAL HEALTH ESTAB PT CPT-4 G0470 Jul 10, 2015 Results No Known Results Summary Purpose [employer] Submission
--- OUTSIDE RECORDS SUMMARY | 2019-03-26 13:15 | XMS REPORT ---
Author Author NASIM SINGH Organization [facility] Address [address] [place] [address] Care Team Providers Care Painter Name Role Phone SAMANTHAELGINNASIM Unavailable PROBLEMS Type Condition ICD9-CM Code YFR39-ST Code Onset Dates Condition Status SNOMED Code Problem Bipolar I disorder with anxious distress F31.9 Active 144656709 ALLERGIES No Information ENCOUNTERS Encounter Location Date Diagnosis [facility] [id number] [place] [address] Feb, [place] [id number] [place] [address] Dec, Bipolar I disorder with anxious distress F31.9 [facility] [id number] [place] [address] Nov, Bipolar I disorder with anxious distress F31.9 [facility] [id number] [place] [address] Oct, Bipolar I disorder with anxious distress F31.9 [facility] [id number] [place] [address] Sep, Bipolar I disorder with anxious distress F31.9 [facility] [id number] [place] [address] Jul, Bipolar I disorder with anxious distress F31.9 [facility] [id number] [place] [address] Jun, Bipolar I disorder with anxious distress F31.9 [facility] [id number] [place] [address] Jun, Bipolar I disorder with anxious distress F31.9 [facility] [id number] [place] [address] Apr, Bipolar I disorder with anxious distress F31.9 [facility] [address], [place] [address] Mar, Bipolar I disorder with anxious distress F31.9 [facility] [address], [place] [address] Mar, Bipolar II disorder F31.81 [facility] [address], [place] [address] Feb, [facility] [id number] [place] [address] Feb, Bipolar II disorder F31.81 [facility] [address], [place] [address] January, Bipolar II disorder F31.81 [facility] [address], [place] [address] January, Bipolar II disorder F31.81 [facility] [address] [place] [address] January, Bipolar II disorder F31.81 [facility] [address], [place] [address] Dec, Bipolar II disorder F31.81 [facility] [address] [place] [address] Nov, Bipolar II disorder F31.81 [facility] [id number] [address] Jul, Bipolar II disorder F31.81 [facility] [address], [place] [address] Jun, Bipolar II disorder F31.81 [facility] [address] [place] [address] May, Bipolar II disorder F31.81 [facility] [address] [place] [address] 15 May, 2016 Bipolar II disorder F31.81 [facility] [id number] [place] [address] May, Bipolar II disorder F31.81 [facility] [id number] [place] [address] Apr, Bipolar II disorder F31.81 [facility] [address] [place] [address] Apr, Bipolar II disorder F31.81 [facility] [address] [place] [address], [place] [address] Mar, Bipolar II disorder F31.81 [facility] [address], [place] [address] Mar, Bipolar II disorder F31.81 [facility] [address] [place] [address] Feb, Bipolar II disorder F31.81 [facility] [address] [place] [address] January, Bipolar II disorder F31.81 [facility] [address], [place] [address] January, Bipolar II disorder F31.81 [facility] [address], [place] [address] Dec, Bipolar II disorder F31.81 [facility] [id number], [place] [address] Nov, Bipolar II disorder F31.81 [facility] [address] [address] Oct, Bipolar II disorder F31.81 [facility] [address], [place] [address] Oct, Bipolar II disorder F31.81 [facility] [id number], [place] [address] Sep, Bipolar II disorder F31.81 [facility] [id number], [place] [address] Jul, Bipolar II disorder F31.81 [facility] [id number], [place] [address] Jun, Bipolar II disorder F31.81 [facility] [address], [place] [address] Jun, Bipolar II disorder F31.81 [facility] [address], [place] [address] May, Bipolar II disorder 296.89 [facility] [id number], [place] [address] Apr, Bipolar II disorder 296.89 IMMUNIZATIONS No Known Immunizations SOCIAL HISTORY Never Assessed REASON FOR VISIT Follow-up Bipolar Disorder PLAN OF CARE Activity Details Follow Up Next available Reason: Follow-up VITAL SIGNS MEDICATIONS Unknown Medications RESULTS No Results PROCEDURES Procedure Date Ordered Result Body Site [facility] VISIT MENTAL HEALTH ESTAB PT Jul 10, 2017 Psychotherapy, patient &/family, 45 minutes, established patient Jul 10, 2017 INSTRUCTIONS MEDICATIONS ADMINISTERED No Known Medications
--- OUTSIDE RECORDS SUMMARY | 2019-03-26 13:15 | XMS REPORT ---
Author Author NASIM SINHG Organization [facility] Address [address] [place] [address] Care Team Providers Care Jukebox Coin Collector Name Role Phone SAMANTHAELGINNASIM Unavailable PROBLEMS Type Condition ICD9-CM Code [id number] Code Onset Dates Condition Status SNOMED Code Problem Bipolar I disorder with anxious distress F31.9 Active [id number] ALLERGIES No Information ENCOUNTERS Encounter Location Date Diagnosis [facility] [id number] [place] [address] Feb, [place] [id number] [place] [address] Dec, Bipolar I disorder with anxious distress F31.9 [facility] [id number] [place] [address] Nov, Bipolar I disorder with anxious distress F31.9 [facility] [id number] [place] [address] Oct, Bipolar I disorder with anxious distress F31.9 [facility] [id number] [place] [address] Sep, Bipolar I disorder with anxious distress F31.9 [facility] [id number] [place] [address] Jul, Bipolar I disorder with anxious distress F31.9 [facility] [id number] [place] [address] Jun, Bipolar I disorder with anxious distress F31.9 [facility] [id number] [place] [address] Jun, Bipolar I disorder with anxious distress F31.9 [facility] [id number] [address] Apr, Bipolar I disorder with anxious distress F31.9 [facility] [address], [place] [address] Mar, Bipolar I disorder with anxious distress F31.9 [facility] [address], [place] [address] Mar, Bipolar II disorder F31.81 [facility] [address], [place] [address] Feb, [facility] [id number] [place] [address] Feb, Bipolar II disorder F31.81 [facility] [address] [address] January, Bipolar II disorder F31.81 [facility] [address] [address] January, Bipolar II disorder F31.81 [facility] [address] [place] [address] January, Bipolar II disorder F31.81 [facility] [address], [place] [address] Dec, Bipolar II disorder F31.81 [facility] [address], [place] [address] Nov, Bipolar II disorder F31.81 [facility] [id number] [address] Jul, Bipolar II disorder F31.81 [facility] [address], [place] [address] Jun, Bipolar II disorder F31.81 [facility] [address], [place] [address] May, Bipolar II disorder F31.81 [facility] [address], [place] [address] 15 May, 2016 Bipolar II disorder F31.81 [facility] [address] [address] May, Bipolar II disorder F31.81 [facility] [address] [place] [address] Apr, Bipolar II disorder F31.81 [facility] [address] [place] [address] Apr, Bipolar II disorder F31.81 [facility] [address] [place] [address], [place] [address] Mar, Bipolar II disorder F31.81 [facility] [address], [place] [address] Mar, Bipolar II disorder F31.81 [facility] [address] [place] [address] Feb, Bipolar II disorder F31.81 [facility] [address] [place] [address] January, Bipolar II disorder F31.81 [facility] [address], [place] [address] January, Bipolar II disorder F31.81 [facility] [address], [place] [address] Dec, Bipolar II disorder F31.81 [facility] [id number] [address] Nov, Bipolar II disorder F31.81 [facility] [address], [place] [address] Oct, Bipolar II disorder F31.81 [facility] [address], [place] [address] Oct, Bipolar II disorder F31.81 [facility] [id number], [place] [address] Sep, Bipolar II disorder F31.81 [facility] [id number] [address] Jul, Bipolar II disorder F31.81 [facility] [id number], [place] [address] Jun, Bipolar II disorder F31.81 [facility] [id number] [address] Jun, Bipolar II disorder F31.81 [facility] [address], [place] [address] May, Bipolar II disorder 296.89 [facility] [id number], [place] [address] Apr, Bipolar II disorder 296.89 IMMUNIZATIONS No Known Immunizations SOCIAL HISTORY Never Assessed REASON FOR VISIT Follow-up Bipolar Disorder PLAN OF CARE Activity Details Follow Up Next available Reason: Follow-up VITAL SIGNS MEDICATIONS Medication Instructions Dosage Frequency Start Date End Date Duration Status Lisinopril Active Omeprazole Active Simvastatin Active Venlafaxine HCl ER Active Namenda Active Colace Active Latanoprost Active Lorazepam Active BusPIRone HCl Active Lamotrigine Active RESULTS No Results PROCEDURES Procedure Date Ordered Result Body Site REPLACED BY [facility] VISIT MENTAL HEALTH ESTAB PT Aug 08, 2017 Psychotherapy, patient &/family, 45 minutes, established patient Aug 08, 2017 INSTRUCTIONS MEDICATIONS ADMINISTERED No Known Medications
--- OUTSIDE RECORDS SUMMARY | 2019-03-26 13:16 | XMS REPORT ---
Author Author NASIM SINGH Organization [facility] Address [address] [place] [address] Care Team Providers Care Health Care Coordinator Name Role Phone SAMANTHAELGINNASIM Unavailable PROBLEMS Type Condition ICD9-CM Code MHA72-UG Code Onset Dates Condition Status SNOMED Code Problem Bipolar I disorder with anxious distress F31.9 Active [id number] ALLERGIES No Information ENCOUNTERS Encounter Location Date Diagnosis [place] [id number] [place] [address] Mar, [place] [id number] [place] [address] Feb, Bipolar I disorder with anxious distress F31.9 [facility] [id number] [place] [address] Dec, Bipolar I disorder with anxious distress F31.9 [facility] [id number] [place] [address] Nov, Bipolar I disorder with anxious distress F31.9 [facility] [id number] [place] [address] Oct, Bipolar I disorder with anxious distress F31.9 [facility] [id number] [place] [address] Sep, Bipolar I disorder with anxious distress F31.9 [facility] [id number] [place] [address] Jul, Bipolar I disorder with anxious distress F31.9 [facility] [id number] [place] [address] Jun, Bipolar I disorder with anxious distress F31.9 [facility] [id number] [address] Jun, Bipolar I disorder with anxious distress F31.9 [facility] [address] [facility] [id number] [place] [address] Apr, Bipolar I disorder with anxious distress F31.9 [facility] [id number] [place] [address] Mar, Bipolar I disorder with anxious distress F31.9 [facility] [address] [facility] [id number] [address] Mar, Bipolar II disorder F31.81 [facility] [id number] [place] [address] Feb, [facility] [address] [facility] [id number] [address] Feb, Bipolar II disorder F31.81 [facility] [address] [place] [address] January, Bipolar II disorder F31.81 [facility] [id number] [address] January, Bipolar II disorder F31.81 [facility] [id number] [address] January, Bipolar II disorder F31.81 [facility] [address] [address] Dec, Bipolar II disorder F31.81 [facility] [id number] [address] Nov, Bipolar II disorder F31.81 [facility] [id number] [address] Jul, Bipolar II disorder F31.81 [facility] [id number] [address] Jun, Bipolar II disorder F31.81 [facility] [address] [facility] [id number] [address] May, Bipolar II disorder F31.81 [facility] [address] [facility] [id number] [place] [address] May, Bipolar II disorder F31.81 [facility] [id number] [place] [address] May, Bipolar II disorder F31.81 [facility] [id number] [place] [address] Apr, Bipolar II disorder F31.81 [facility] [id number] [place] [address], [place] [address] Apr, Bipolar II disorder F31.81 [facility] [address] [place] [address] Mar, Bipolar II disorder F31.81 [facility] [address] [address] Mar, Bipolar II disorder F31.81 [facility] [address] [place] [address] Feb, Bipolar II disorder F31.81 [facility] [address] [address] January, Bipolar II disorder F31.81 [facility] [address] [address] January, Bipolar II disorder F31.81 [facility] [address] [address] Dec, Bipolar II disorder F31.81 [facility] [id number] [address] Nov, Bipolar II disorder F31.81 [facility] [address] [address] Oct, Bipolar II disorder F31.81 [facility] [id number] [address] Oct, Bipolar II disorder F31.81 [facility] [address] [address] Sep, Bipolar II disorder F31.81 [facility] [address] [address] Jul, Bipolar II disorder F31.81 [facility] [address] [address] Jun, Bipolar II disorder F31.81 [facility] [address] [address] Jun, Bipolar II disorder F31.81 [facility] [address] [address] May, Bipolar II disorder 296.89 [facility] [address] [address] Apr, Bipolar II disorder 296.89 IMMUNIZATIONS No Known Immunizations SOCIAL HISTORY Never Assessed REASON FOR VISIT Follow-up Bipolar Disorder PLAN OF CARE Activity Details Follow Up 5W Reason: Follow-up VITAL SIGNS MEDICATIONS Unknown Medications RESULTS No Results PROCEDURES Procedure Date Ordered Result Body Site [facility] VISIT MENTAL HEALTH ESTAB PT Sep 19, 2017 Psychotherapy, patient &/family, 45 minutes, established patient Sep 19, 2017 INSTRUCTIONS MEDICATIONS ADMINISTERED No Known Medications
--- OUTSIDE RECORDS SUMMARY | 2019-03-26 13:16 | XMS REPORT ---
Author RADHA Doyle [facility] eClinicalWorks Address Unknown Phone Unavailable Care Team Providers Care Necktie Turner Name Role Phone RADHA LEUNG CP Unavailable Allergies No Known Allergies Problems Problem Type Condition Code Onset Dates Condition Status Assessment Bipolar II disorder F31.81 Active Problem Bipolar II disorder F31.81 Active Medications No Known Medications Procedures Procedure Coding System Code Date Psychotherapy, patient &/family, 45 minutes, established patient CPT-4 97034 May 12, 2016 [facility] VISIT MENTAL HEALTH ESTAB PT CPT-4 G0470 May 12, 2016 Results No Known Results Summary Purpose eClinicalWorks Submission
--- OUTSIDE RECORDS SUMMARY | 2019-03-26 13:16 | XMS REPORT ---
Author Author RADHA LEUNG [facility] eClinicalWorks Address Unknown Phone Unavailable Care Team Providers Care Field Artillery Fire Control Man Name Role Phone RADHA LEUNG CP Unavailable Allergies No Known Allergies Problems Problem Type Condition Code Onset Dates Condition Status Assessment Bipolar II disorder F31.81 Active Problem Bipolar II disorder F31.81 Active Medications No Known Medications Procedures Procedure Coding System Code Date Psychotherapy, patient &/family, 45 minutes, established patient CPT-4 99503 December 23, 2015 [facility] VISIT MENTAL HEALTH ESTAB PT CPT-4 G0470 December 23, 2015 Results No Known Results Summary Purpose eClinicalWorks Submission
--- OUTSIDE RECORDS SUMMARY | 2019-03-26 13:16 | XMS REPORT ---
Author Author RADHA LEUNG [facility] eClinicalWorks Address Unknown Phone Unavailable Care Team Providers Care Animal Feeder Name Role Phone RADHA LEUNG CP Unavailable Allergies No Known Allergies Problems Problem Type Condition Code Onset Dates Condition Status Assessment Bipolar II disorder F31.81 Active Problem Bipolar II disorder F31.81 Active Medications No Known Medications Procedures Procedure Coding System Code Date Psychotherapy, patient &/family, 45 minutes, established patient CPT-4 68563 March 29, 2016 [facility] VISIT MENTAL HEALTH ESTAB PT CPT-4 G0470 March 29, 2016 Results No Known Results Summary Purpose eClinicalWorks Submission
--- OUTSIDE RECORDS SUMMARY | 2019-03-26 13:16 | XMS REPORT ---
Author Author NASIM SINGH Organization [facility] Address [address] [place] [address] Care Team Providers Care Box Printing Machine Operator Name Role Phone SAMANTHAELGINNASIM Unavailable PROBLEMS Type Condition ICD9-CM Code RON01-TD Code Onset Dates Condition Status SNOMED Code Problem Bipolar I disorder with anxious distress F31.9 Active [id number] ALLERGIES No Information ENCOUNTERS Encounter Location Date Diagnosis [facility] [id number] [place] [address] Feb, [place] [id number] [place] [address] Dec, Bipolar I disorder with anxious distress F31.9 [facility] [id number] [place] [address] Nov, Bipolar I disorder with anxious distress F31.9 [facility] [id number] [place] [address] Oct, Bipolar I disorder with anxious distress F31.9 [facility] [id number] [place] [address] Sep, Bipolar I disorder with anxious distress F31.9 [facility] [id number] [place] [address] Jul, Bipolar I disorder with anxious distress F31.9 [facility] [id number] [place] [address] Jun, Bipolar I disorder with anxious distress F31.9 [facility] [id number] [place] [address] Jun, Bipolar I disorder with anxious distress F31.9 [facility] [id number] [address] Apr, Bipolar I disorder with anxious distress F31.9 [facility] [address], [place] [address] Mar, Bipolar I disorder with anxious distress F31.9 [facility] [address], [place] [address] Mar, Bipolar II disorder F31.81 [facility] [address], [place] [address] Feb, [facility] [id number] [place] [address] Feb, Bipolar II disorder F31.81 [facility] [address], [place] [address] January, Bipolar II disorder F31.81 [facility] [address], [place] [address] January, Bipolar II disorder F31.81 [facility] [address] [place] [address] January, Bipolar II disorder F31.81 [facility] [address], [place] [address] Dec, Bipolar II disorder F31.81 [facility] [address], [place] [address] Nov, Bipolar II disorder F31.81 [facility] [id number] [address] Jul, Bipolar II disorder F31.81 [facility] [address], [place] [address] Jun, Bipolar II disorder F31.81 [facility] [address], [place] [address] May, Bipolar II disorder F31.81 [facility] [address], [place] [address] 15 May, 2016 Bipolar II disorder F31.81 [facility] [address] [address] May, Bipolar II disorder F31.81 [facility] [id number] [address] Apr, Bipolar II disorder F31.81 [facility] [address] [place] [address] Apr, Bipolar II disorder F31.81 [facility] [address] [place] [address], [place] [address] Mar, Bipolar II disorder F31.81 [facility] [address] [address] Mar, Bipolar II disorder F31.81 [facility] [address] [place] [address] Feb, Bipolar II disorder F31.81 [facility] [address] [place] [address] January, Bipolar II disorder F31.81 [facility] [address], [place] [address] January, Bipolar II disorder F31.81 [facility] [address], [place] [address] Dec, Bipolar II disorder F31.81 [facility] [id number] [address] Nov, Bipolar II disorder F31.81 [facility] [address], [place] [address] Oct, Bipolar II disorder F31.81 [facility] [address], [place] [address] Oct, Bipolar II disorder F31.81 [facility] [id number] [address] Sep, Bipolar II disorder F31.81 [facility] [id number] [address] Jul, Bipolar II disorder F31.81 [facility] [id number] [address] Jun, Bipolar II disorder F31.81 [facility] [address] [address] Jun, Bipolar II disorder F31.81 [facility] [address], [place] [address] May, Bipolar II disorder 296.89 [facility] [id number] [address] Apr, Bipolar II disorder 296.89 IMMUNIZATIONS No Known Immunizations SOCIAL HISTORY Never Assessed REASON FOR VISIT Follow-up Bipolar Disorder PLAN OF CARE Activity Details Follow Up 3 Weeks Reason: Follow-up VITAL SIGNS MEDICATIONS Unknown Medications RESULTS No Results PROCEDURES Procedure Date Ordered Result Body Site [facility] VISIT MENTAL HEALTH ESTAB PT Jun 12, 2017 Psychotherapy, patient &/family, 45 minutes, established patient Jun 12, 2017 INSTRUCTIONS MEDICATIONS ADMINISTERED No Known Medications
--- OUTSIDE RECORDS SUMMARY | 2019-03-26 13:16 | XMS REPORT ---
Author Author RADHA LEUNG [facility] eClinicalWorks Address Unknown Phone Unavailable Care Team Providers Care Sustainable Agriculture Faculty Name Role Phone RADHA LEUNG CP Unavailable Allergies No Known Allergies Problems Problem Type Condition Code Onset Dates Condition Status Assessment Bipolar II disorder F31.81 Active Problem Bipolar II disorder F31.81 Active Medications No Known Medications Procedures Procedure Coding System Code Date Psychotherapy, patient &/family, 45 minutes, established patient CPT-4 10623 January 12, 2016 [facility] VISIT MENTAL HEALTH ESTAB PT CPT-4 G0470 January 12, 2016 Results No Known Results Summary Purpose eClinicalWorks Submission
--- OUTSIDE RECORDS SUMMARY | 2019-03-26 13:16 | XMS REPORT ---
Author Author RADHA LEUNG [facility] eClinicalWorks Address Unknown Phone Unavailable Care Team Providers Care Full Charge Bookkeeper Name Role Phone RADHA LEUNG CP Unavailable Allergies No Known Allergies Problems Problem Type Condition Code Onset Dates Condition Status Assessment Bipolar II disorder F31.81 Active Problem Bipolar II disorder F31.81 Active Medications No Known Medications Procedures Procedure Coding System Code Date Psychotherapy, patient &/family, 45 minutes, established patient CPT-4 17311 Aug 04, 2015 [facility] VISIT MENTAL HEALTH ESTAB PT CPT-4 G0470 Aug 04, 2015 Results No Known Results Summary Purpose eClinicalWorks Submission
--- OUTSIDE RECORDS SUMMARY | 2019-03-26 13:16 | XMS REPORT ---
Author Author RADHA LEUNG [facility] eClinicalWorks Address Unknown Phone Unavailable Care Team Providers Care Scada Engineer Name Role Phone RADHA LEUNG CP Unavailable Allergies No Known Allergies Problems Problem Type Condition Code Onset Dates Condition Status Assessment Bipolar II disorder F31.81 Active Problem Bipolar II disorder F31.81 Active Medications No Known Medications Procedures Procedure Coding System Code Date Psychotherapy, patient &/family, 45 minutes, established patient CPT-4 48728 Sep 25, 2015 [facility] VISIT MENTAL HEALTH ESTAB PT CPT-4 G0470 Sep 25, 2015 Results No Known Results Summary Purpose eClinicalWorks Submission
--- OUTSIDE RECORDS SUMMARY | 2019-03-26 13:16 | XMS REPORT | Continuity of Care Document ---
Author Organization Unknown Address Unknown Allergies Active Description Code Type Severity Reaction Onset Reported/Identified Relationship to Patient Clinical Status Yes FLEXARIL FLEXARIL Unknown N/A 05/23/2010 Yes hydrocodone [id number] Drug Allergy Unknown N/A 05/23/2010 Yes TAPE TAPE Unknown N/A 05/23/2010 Yes Tetanus Vaccines Toxoid [id number] Drug Allergy Unknown N/A 05/23/2010 Yes Tetanus Vaccines and Toxoid [id number] Drug Allergy Unknown N/A 05/23/2010 Medications There is no data. Problems Date Dx Coded Attending Type Code Diagnosis Diagnosed By 10/16/2014 SANTY CARRION DO Ot 294.9 03/04/2015 SANTY BUSTOS DO Ot V76.12 06/23/2017 SANTY BUSTOS DO Ot Z12.31 ENCNTR SCREEN MAMMOGRAM FOR MALIGNANT NE 07/13/2017 SANTY BUSTOS DO Ot Z12.31 ENCNTR SCREEN MAMMOGRAM FOR MALIGNANT NE 07/13/2018 SANTY BUSTOS DO Ot R92.8 OTH ABN AND INCONCLUSIVE FINDINGS ON DX 07/13/2018 SANTY BUSTOS DO Ot Z12.31 ENCNTR SCREEN MAMMOGRAM FOR MALIGNANT NE 08/01/2018 SANTY BUSTOS DO Ot R92.8 OTH ABN AND INCONCLUSIVE FINDINGS ON DX 08/01/2018 SANTY BUSTOS DO Ot Z12.31 ENCNTR SCREEN MAMMOGRAM FOR MALIGNANT NE 08/14/2018 SANTY BUSTOS DO Ot R92.2 INCONCLUSIVE MAMMOGRAM 09/08/2018 SANTY BUSTOS DO Ot R92.2 INCONCLUSIVE MAMMOGRAM 09/21/2018 SANTY BUSTOS DO Ot R92.2 INCONCLUSIVE MAMMOGRAM Procedures There is no data. Results There is no data. Encounters ACCT No. Visit Date/Time Discharge Status Pt. Type Provider Facility Loc./Unit Complaint [id number] 08/13/2018 14:03:00 08/13/2018 23:59:59 CLS Outpatient SANTY BUSTOS DO [facility] RAD ABNORMAL MAMMOGRAM [id number] 07/18/2018 15:50:00 07/18/2018 23:59:59 CLS Preadmit SANTY BUSTOS DO [facility] RAD ABNORMAL MAMMO [id number] 07/11/2018 10:35:00 07/11/2018 23:59:59 CLS Outpatient SANTY BUSTOS DO [facility] RAD SCREENING [id number] 06/22/2017 10:35:00 06/22/2017 23:59:59 CLS Outpatient SANTY BUSTOS DO [facility] RAD SCREENING Z12.31 [id number] 02/09/2015 10:03:00 02/09/2015 23:59:59 CLS Outpatient SANTY BUSTOS DO [facility] RAD [id number] 06/04/2014 14:22:00 06/04/2014 23:59:59 CLS Outpatient SANTY CARROIN DO [facility] RAD [id number] 12/04/2013 09:56:00 12/04/2013 23:59:59 CLS Outpatient
[2019-03-26 13:24] LABS: ALBUMIN 4.2 GM/DL (3.2-4.5); BILIRUBIN,TOTAL 0.4 MG/DL (0.1-1.0); CALCIUM 9.8 MG/DL (8.5-10.1); CREATININE SERUM 1.02 MG/DL (0.60-1.30); POTASSIUM 4.3 MMOL/L (3.6-5.0); TOTAL PROTEIN 6.6 GM/DL (6.4-8.2)
[2019-03-26] MEDS ORDERED: NS IV 500 ML 500 ML IV SCH (13:30)
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
[2019-03-26] MEDS ORDERED: oxyCODONE/APAP 5/325MG (PERCOCET 5) TABLET PO ONE (14:45)
[2019-03-26] MEDS ORDERED: OXYC1TAB87 PO (14:54)
[2019-03-26] MEDS ORDERED: fentaNYL INJECTION 100 MCG/2 ML AMP IVP ONE (16:15)
[2019-03-26] MEDS ORDERED: KETOROLAC 30 MG/ML VIAL IVP ONE (16:15)
--- NOTE | 2019-03-26 17:24 | NUR ---
REPORT RECEIVED FROM DAKSHA PUCKETT IN ER VIA TELEPHONE.
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
--- NOTE | 2019-03-26 17:38 | NUR ---
DR. LOPEZ NOTIFIED OF CONSULT.
[2019-03-26 17:40] VITALS: BP 135/94
[2019-03-26] MEDS: LACTATED RINGERS 1,000 ML IV SCH (18:07)
[2019-03-26] MEDS ORDERED: CATHETER FLUSH 10 ML SYR IV PRN (18:15)
[2019-03-26] MEDS: oxyCODONE/APAP 5/325MG (PERCOCET 5) TABLET PO PRN (18:30)
[2019-03-26 20:00] VITALS: BP 134/73
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
[2019-03-27 00:35] VITALS: BP 112/63
[2019-03-27 04:46] VITALS: BP 116/64
[2019-03-27] MEDS: LACTATED RINGERS 1,000 ML IV SCH (07:34)
[2019-03-27] MEDS: oxyCODONE/APAP 5/325MG (PERCOCET 5) TABLET PO PRN ×2 (07:35→12:20)
[2019-03-27 08:00] VITALS: BP 112/67
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
[2019-03-27] MEDS ORDERED: DOCUSATE SODIUM 100 MG (COLACE) CAP PO SCH (09:00)
[2019-03-27] MEDS ORDERED: MEMA1CAP3 PO (09:24)
[2019-03-27] MEDS ORDERED: LORA0.5T PO (09:24)
[2019-03-27] MEDS ORDERED: LATA2.5D5 OU (09:24)
[2019-03-27] MEDS ORDERED: ARIP5TAB20 PO (09:24)
[2019-03-27] MEDS ORDERED: LOSA50TA63 PO (09:24)
[2019-03-27] MEDS ORDERED: POLY17PO6 PO (09:24)
[2019-03-27] MEDS ORDERED: LAMO100T PO (09:24)
[2019-03-27] MEDS ORDERED: MULT1TAB69 PO (09:24)
[2019-03-27] MEDS ORDERED: OMG1KC PO (09:24)
[2019-03-27] MEDS ORDERED: ASPI-983 PO (09:24)
[2019-03-27] MEDS ORDERED: VNL75T PO (09:24)
[2019-03-27] MEDS ORDERED: SENN-145 PO (09:24)
[2019-03-27] MEDS ORDERED: VENL150C98 PO (09:24)
[2019-03-27] MEDS ORDERED: SIMV20TA3 PO (09:24)
--- NOTE | 2019-03-27 09:27 | NUR ---
SPOKE WITH THE PATIENT'S DAUGHTER REGARDING MEDICATIONS. SHE SETS UP THE PATIENTS PILL FABRIC INSPECTOR FOR HER. WE WENT OVER THE EXT MED HX AND SHE ALSO LISTED THE OTC MEDS. OTC MEDICATIONS INCLUDE: ASPIRIN 81MG HS MULTIVITAMIN HS FISH OIL DAILY MIRALAX PRN
[2019-03-27] MEDS ORDERED: POLYETHYLENE GLYCOL 17 GM (MIRALAX) PACK PO PRN (10:05)
[2019-03-27] MEDS ORDERED: SENNA W/DOCUSATE (SENOKOT S) TABLET PO SCH (10:15)
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
[2019-03-27 12:00] VITALS: BP 115/71
[2019-03-27] MEDS ORDERED: LORazepam 0.5 MG (ATIVAN) TABLET PO SCH (13:00)
[2019-03-27] MEDS ORDERED: VENlafaxine 75 MG (EFFEXOR) TAB PO SCH (13:00)
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
[2019-03-27] MEDS ORDERED: ASPIRIN E.C. 81 MG (ECOTRIN) TAB PO SCH (21:00)
[2019-03-27] MEDS ORDERED: MEMANTINE 10 MG (NAMENDA) TABLET PO SCH (21:00)
[2019-03-27] MEDS ORDERED: DONEPEZIL 5 MG (ARICEPT) TAB PO SCH (21:00)
[2019-03-27] MEDS ORDERED: LATANOPROST 0.005% (XALATAN) OPHTH SOLN 2.5 ML OU SCH (21:00)
[2019-03-27] MEDS ORDERED: SIMvastatin 20 MG (ZOCOR) TAB PO SCH (21:00)
[2019-03-28] MEDS ORDERED: VENlafaxine XR 75 MG (EFFEXOR XR) CAP PO SCH (07:00)
== END 2019-03-27 11:26 ==
LOC: EDUNIT# 12:47 → ER 12:48 → 4TH 16:06 → UNDOADMOB 16:06 → 4TH 17:30 → UNDODISOB 03-27 12:20
PROVIDERS: ADMIT Family Medicine; ATTEND Family Medicine
DX: S32.019A Unspecified fracture of first lumbar vertebra, initial encounter for closed fracture (principal); R10.13 Epigastric pain; G30.9 Alzheimer's disease, unspecified; F02.80 Dementia in other diseases classified elsewhere, unspecified severity, without behavioral disturbance, psychotic disturbance, mood disturbance, and anxiety; I10 Essential (primary) hypertension; F32.9 Major depressive disorder, single episode, unspecified; Z79.891 Long term (current) use of opiate analgesic; Z79.82 Long term (current) use of aspirin; Z79.899 Other long term (current) drug therapy; Z88.5 Allergy status to narcotic agent; Z88.7 Allergy status to serum and vaccine; Z88.8 Allergy status to other drugs, medicaments and biological substances; Z91.048 Other nonmedicinal substance allergy status; Z90.710 Acquired absence of both cervix and uterus; Z98.41 Cataract extraction status, right eye; Z98.42 Cataract extraction status, left eye; Z80.0 Family history of malignant neoplasm of digestive organs; Z80.1 Family history of malignant neoplasm of trachea, bronchus and lung; Z80.3 Family history of malignant neoplasm of breast; V49.9XXA Car occupant (driver) (passenger) injured in unspecified traffic accident, initial encounter; Y92.410 Unspecified street and highway as the place of occurrence of the external cause
CPT/HCPCS: 36415; 70450; 71260; 72125; 72170; 74177; 80053; 85025; 93005; 94664; 96361; 96374; 96375; G0378

== ENCOUNTER 2019-03-27 10:57 | Inpatient (IN) | payer MEDICARE ==
[~2019-03-27] VITALS: Ht 165.1 cm; Wt 78.6 kg
[~2019-03-27 10:57] MED LIST changes: +ARIP5TAB20 PO; +ASPI-983 PO; +LAMO100T PO; +LATA2.5D5 OU; +LORA0.5T PO; +LOSA50TA63 PO; +MEMA1CAP3 PO; +MULT1TAB69 PO; +OXYC1TAB87 PO; +POLY17PO6 PO; +SENN-145 PO; +SIMV20TA3 PO; +VENL150C98 PO; +VNL75T PO
--- OUTSIDE RECORDS SUMMARY | 2019-03-27 12:44 | XMS REPORT | Clinical Summary ---
Author Author [facility] Organization [facility] Address Unknown Phone Unavailable Care Team Providers Care Paving Foreman Name Role Phone ZackMiles PCP Sammy Nuñez MD [address] Source Comments Some departments are not documenting in the electronic medical record. If you d o not see the information that you expected, contact Release of Information in [facility] Information Management department at [phone] for further assistan ce in locating additional records.[facility] Allergies Comments Active Allergy Reactions Severity Noted [...] 2008-P PART A AND resent B PPO FORMERLY [facility] xxxxxxxxxxx 2016-P resent Advance Directives Patient Transition Mgr Rn Explanation Type Date Recorded Advance Directive/DPOA
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
--- OUTSIDE RECORDS SUMMARY | 2019-03-27 12:46 | XMS REPORT | Continuity of Care Document ---
Author Organization Unknown Address Unknown Allergies Active Description Code Type Severity Reaction Onset Reported/Identified Relationship to Patient Clinical Status Yes FLEXARIL FLEXARIL Unknown N/A 05/23/2010 Yes hydrocodone [id number] Drug Allergy Unknown N/A 05/23/2010 Yes TAPE TAPE Unknown N/A 05/23/2010 Yes Tetanus Vaccines Toxoid [id number] Drug Allergy Unknown N/A 05/23/2010 Yes Tetanus Vaccines and Toxoid [id number] Drug Allergy Unknown N/A 05/23/2010 Medications There [...] MAMMOGRAM Procedures There is no data. Results Test Result Range Complete blood count (CBC) with automated white blood cell (WBC) differential - 03/26/19 13:00 Blood leukocytes automated count (number/volume) 8.4 10*3/uL 4.3-11.0 Blood erythrocytes automated count (number/volume) 4.54 10*6/uL 4.35-5.85 Venous blood hemoglobin measurement (mass/volume) 13.1 g/dL 11.5-16.0 Blood hematocrit (volume fraction) 40 % 35-52 Automated erythrocyte mean corpuscular volume 88 [foz_us] 80-99 Automated erythrocyte mean corpuscular hemoglobin (mass per erythrocyte) 29 pg 25-34 Automated erythrocyte mean corpuscular hemoglobin concentration measurement (mass/volume) 33 g/dL 32-36 Automated erythrocyte distribution width ratio 13.6 % 10.0- 14.5 Automated blood platelet count (count/volume) 253 10*3/uL 130-400 Automated blood platelet mean volume measurement 9.4 [foz_us] 7.4-10.4 Automated blood neutrophils/100 leukocytes 70 % 42-75 Automated blood lymphocytes/100 leukocytes 21 % 12-44 Blood monocytes/100 leukocytes 8 % 0-12 Automated blood eosinophils/100 leukocytes 1 % 0-10 Automated blood basophils/100 leukocytes 1 % 0-10 Blood neutrophils automated count (number/volume) 5.8 10*3 1.8-7.8 Blood lymphocytes automated count (number/volume) 1.8 10*3 1.0-4.0 Blood monocytes automated count (number/volume) 0.7 10*3 0.0- 1.0 Automated eosinophil count 0.1 10*3/uL 0.0-0.3 Automated blood basophil count (count/volume) 0.0 10*3/uL 0.0-0.1 Comprehensive metabolic panel - 03/26/19 13:00 Serum or plasma sodium measurement (moles/volume) 140 mmol/L 135-145 Serum or plasma potassium measurement (moles/volume) 4.3 mmol/L 3.6-5.0 Serum or plasma chloride measurement (moles/volume) 106 mmol/L 98-107 Carbon dioxide 26 mmol/L 21-32 Serum or plasma anion gap determination (moles/volume) 8 mmol/L 5-14 Serum or plasma urea nitrogen measurement (mass/volume) 19 mg/dL 7-18 Serum or plasma creatinine measurement (mass/volume) 1.02 mg/dL 0.60-1.30 Serum or plasma urea nitrogen/creatinine mass ratio 19 NRG Serum or plasma creatinine measurement with calculation of estimated glomerular filtration rate 53 NRG Serum or plasma glucose measurement (mass/volume) 103 mg/dL 70-105 Serum or plasma calcium measurement (mass/volume) 9.8 mg/dL 8.5-10.1 Serum or plasma total bilirubin measurement (mass/volume) 0.4 mg/dL 0.1-1.0 Serum or plasma alkaline phosphatase measurement (enzymatic activity/volume) 73 U/L 40-136 Serum or plasma aspartate aminotransferase measurement (enzymatic activity/volume) 33 U/L 5-34 Serum or plasma alanine aminotransferase measurement (enzymatic activity/volume) 22 U/L 0-55 Serum or plasma protein measurement (mass/volume) 6.6 g/dL 6.4-8.2 Serum or plasma albumin measurement (mass/volume) 4.2 g/dL 3.2-4.5 CALCIUM CORRECTED 9.6 mg/dL 8.5-10.1 Encounters ACCT No. Visit Date/Time Discharge Status Pt. Type Provider Facility Loc./Unit Complaint [id number] 08/13/2018 14:03:00 08/13/2018 23:59:59 CLS Outpatient SANTY BUSTOS DO [facility] RAD ABNORMAL MAMMOGRAM [id number] 07/18/2018 15:50:00 07/18/2018 23:59:59 CLS Preadmit SANTY BUSTOS DO [facility] RAD ABNORMAL MAMMO [id number] 07/11/2018 10:35:00 07/11/2018 23:59:59 CLS Outpatient SANTY BUSTOS DO [facility] RAD SCREENING [id number] 06/22/2017 10:35:00 06/22/2017 23:59:59 CLS Outpatient SANTY BUSTOS DO [facility] RAD SCREENING Z12.31 [id number] 02/09/2015 10:03:00 02/09/2015 23:59:59 CLS Outpatient SANTY BUSTOS DO [facility] RAD [id number] 06/04/2014 14:22:00 06/04/2014 23:59:59 CLS Outpatient SANTY CARRION DO [facility] RAD [id number] 12/04/2013 09:56:00 12/04/2013 23:59:59 CLS Outpatient [id number] 03/26/2019 13:11:00 Document Registration
[2019-03-27] MEDS: DOCUSATE SODIUM 100 MG (COLACE) CAP PO SCH ×2 (13:00→20:32)
--- NOTE | 2019-03-27 13:17 | NUR ---
REVIEWED MEDICATIONS THEY WERE REPORTED UPON ADMISSION TO 4TH FLOOR. NO CHANGES WERE MADE WHEN THE PATIENT WENT TO REHAB.
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
[2019-03-27] MEDS ORDERED: ALPRAZolam 0.25 MG (XANAX) TAB PO PRN (13:30)
[2019-03-27] MEDS: POLYETHYLENE GLYCOL 17 GM (MIRALAX) PACK PO SCH ×2 (13:30→20:48)
[2019-03-27] MEDS ORDERED: LACTULOSE SYRUP 10GM/15ML (ENULOSE) 30ML UDC PO SCH (13:30)
[2019-03-27] MEDS ORDERED: diphenhydrAMINE 25 MG TAB (BENADRYL) PO PRN (13:30)
[2019-03-27] MEDS: LACTULOSE SYRUP 10GM/15ML (ENULOSE) 30ML UDC PO SCH ×2 (13:30→20:39)
[2019-03-27] MEDS ORDERED: MELATONIN 3 MG TABLET PO PRN (13:30)
[2019-03-27] MEDS ORDERED: NON-FORMULARY MEDICATION 1 EA EA (Polyethylene Glycol 3350 (Miralax) 17 GM) PO PRN (13:30)
[2019-03-27] MEDS ORDERED: CALCIUM CARBONATE 500 MG (TUMS) TAB.CHEW PO PRN (13:30)
[2019-03-27] MEDS ORDERED: BACLOFEN 10 MG (LIORESAL) TAB PO PRN (13:30)
[2019-03-27] MEDS: SENNA W/DOCUSATE (SENOKOT S) TABLET PO SCH ×2 (13:30→20:34)
[2019-03-27] MEDS ORDERED: ONDANSETRON 4 MG (ZOFRAN) ORAL DISSOLVE TAB PO PRN (13:30)
[2019-03-27] MEDS ORDERED: POLYETHYLENE GLYCOL 17 GM (MIRALAX) PACK PO PRN (13:45)
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
--- NOTE | 2019-03-27 14:40 | Occupational Ther Daily Note ---
OT Current Status-Daily Note Subjective Pt alert, sitting in recliner. Pt's daughter in room. Daughter states that pt is in early stages of Alzheimer's. No c/o pain. Agrees to therapy. Pt's daughter requests to use bed alarm and chair alarm. Chair alarm placed in room. Mental Status/Objective Patient Orientation: Person, Place, Time, Situation Therapy Code Descriptions/Definitions Functional [place] Measure: 0=Not Assessed/NA 4=Minimal Assistance 1=Total Assistance 5=Supervision or Setup 2=Maximal Assistance 6=Modified [place] 3=Moderate Assistance 7=Complete [place] Attachments: IV ADL-Treatment Pt agrees to shower. Min A for sit to stand then CGA using FWW into bathroom. Pt transferred using FWW and grabbars to toilet with min A. CGA to manipulate clothing and pt completed hygiene in sitting. Min A for shower transfer using FWW, grabbars and shower bench. Assist to adjust temperature for shower. Pt able to complete all areas except buttocks and lower legs/feet due to pain. Min A to don bra and pull shirt down, threaded arms and head by self to don shirt. Assist to thread feet into pant/underpants legs then pulled up legs. Assist to hike pants over hips in standing using FWW for stability. Pt declined to complete grooming at this time. Pt ambulated back to room and sat in recliner. Pt able to set up own food with assistance to sequence or find items on tray then used regular utensils to eat. During session, pt had times that she forgot what she had done or what she needed to do, verbal cues to focus pt. Nrsg and daughter in room after session. Call light/phone in reach. Safety measures in place. All needs met in room. Therapy Code Descriptions/Definitions Functional [place] Measure: 0=Not Assessed/NA 4=Minimal Assistance 1=Total Assistance 5=Supervision or Setup 2=Maximal Assistance 6=Modified [place] 3=Moderate Assistance 7=Complete [place] Therapy Quality Codes: 6 Independent with activity with or without an assistive device 5 Patient requires set up or clean up by helper. Patient completes activity by themselves 4 Supervision or touching assist (CGA). [place] provide cues , steadying assist 3 The helper provides less than half the effort to complete the activity 2 The helper provides more than half the effort to complete the activity 1 Dependent. The helper does all the effort to complete an activity 7 Patient refused to complete or attempt activity 9 The patient did not perform the activity before the current illness or injury 88 Not attempted due to Medical conditions or safety concerns Eating (FIM): 5 Eating (QC): 5 Bathing (FIM): 3 Bathing Location: L Arm, R Arm, L Upper Leg, R Upper Leg, Chest, Abdomen, Perineal Area Shower/Bathe Self (QC): 3 Upper Body (FIM): 4 Upper Body Dressing (QC): 3 Lower Body Dressing (FIM): 3 Lower Body Dressing (QC): 3 On/Off Footwear (QC): 2 Toileting (FIM): 4 Toileting Hygiene (QC): 4 Transfers (B, C, W/C) (FIM): 4 Toilet/Commode Transfer (FIM): 4 Toilet Transfer (QC): 3 Shower Transfer(FIM): 4 Pt requires education with lower body dressing equipment. OT Short Term Goals Short Term Goals Transfers (B,C,W/C) (FIM): 5 1=Demonstrate adherence to instructed precautions during ADL tasks. 2=Patient will verbalize/demonstrate understanding of assistive devices/modifications for ADL. 3=Patient will improve strength/tolerance for activity to enable patient to perform ADL's. OT Residential Goals Laborer Sawmill Goals Time Frame: Apr 10, 2019 Eating (FIM): 6 Eating (QC): 6 Groomin Oral Hygiene (QC): 6 Bathing(FIM): 5 Shower/Bathe Self (QC): 5 Upper Body Dressing(FIM): 5 Upper Body Dressing (QC): 5 Lower Body Dressing(FIM): 5 Lower Body Dressing (QC): 5 On/Off Footwear (QC): 5 Toileting(FIM): 6 Toileting Hygiene (QC): 6 Transfers (B,C,W/C) (FIM): 6 Toilet/Commode Transfer(FIM): 6 Toilet/Commode Transfer (QC): 6 Shower Transfer(FIM): 5 Additional Goals: 1-Demonstrate ADL Tasks, 2-Verbalize Understanding, 3- ImproveStrength/Kaylyn 1=Demonstrate adherence to instructed precautions during ADL tasks. 2=Patient will verbalize/demonstrate understanding of assistive devices/modifications for ADL. 3=Patient will improve strength/tolerance for activity to enable patient to perform ADL's. OT Education/Plan Problem List/Assessment Assessment: Impaired Cognition, Impaired Funct Balance, Impaired Self-Care Skills Discharge Recommendations Plan/Recommendations: Continue POC Treatment Plan/Plan of Care Patient would benefit from OT for education, treatment and training to promote independence in ADL's, mobility, safety and/or upper extremity function for ADL's. Plan of Care: ADL Retraining, Caregiver Training, Functional Mobility, Group Exercise/Act as Ind, UE Funct Exercise/Act Treatment Duration: Apr 10, 2019 Frequency: At least 5 of 7 days/Wk (IRF) Estimated Hrs Per Day: 1.5 hours per day Agreement: Yes Rehab Potential: Good Time/GCodes Start Time: 13:35 Stop Time: 14:40 Total Time Billed (hr/min): 65 Billed Treatment Time 1 visit-ADL 4 (65 min) MELISSA SEPULVEDA Mar 27, 2019 14:40
[2019-03-27 14:49] VITALS: BP 126/70
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
--- NOTE | 2019-03-27 16:16 | Physical Therapy Daily Note ---
PT Daily Note-Current Subjective Pt sitting in recliner upon arrival. Pt demonstrates confusion but very pleasant. Pt agrees to work with PT. Pain Location: No Pain Reported Mental Status Patient Orientation: Person, Confused, Place Transfers Therapy Code Descriptions/Definitions Functional [place] Measure: 0=Not Assessed/NA 4=Minimal Assistance 1=Total Assistance 5=Supervision or Setup 2=Maximal Assistance 6=Modified [place] 3=Moderate Assistance 7=Complete [place] Therapy Quality Codes: 6 Independent with activity with or without an assistive device 5 Patient requires set up or clean up by helper. Patient completes activity by themselves 4 Supervision or touching assist (CGA). [place] provide cues , steadying assist 3 The helper provides less than half the effort to complete the activity 2 The helper provides more than half the effort to complete the activity 1 Dependent. The helper does all the effort to complete an activity 7 Patient refused to complete or attempt activity 9 The patient did not perform the activity before the current illness or injury 88 Not attempted due to Medical conditions or safety concerns Scootin Sit to/from Stand: 4 Sit to Stand (QC): 4 Weight Bearing Full Weight Bearing Full Weight Bearing Treatments NIGHT COORDINATOR discussing some ARU Expectations with pt when pt wants to lay down. Pt transfers to Supine in bed with all needs met, call light next to pt. Assessment Current Status: Fair Progress Pt tries to get up out of recliner or bed w/o staff. Nurse is notified. Pt has chair & bed alarms set. PT Short Term Goals Short Term Goals Time Frame: Apr 01, 2019 Transfers (B,C,W/C) (FIM): 5 Gait (FIM): 5 PT Passementerie Worker Goals Correction Goals PT Correction Goals Time Frame: Apr 10, 2019 Transfers (B,C,W/C) (FIM): 7 Sit to Lying (QC): 6 Lying-Sitting on Side/Bed(QC): 6 Sit to Stand (QC): 6 Roll Left to Right (QC): 6 Chair/[id number] Xfer(QC): 6 Car Transfer (QC): 6 Does the Patient Walk: Yes Gait (FIM): 6 Gait distance (FIM): 3=150 ft Walk 10 feet (QC): 6 Walk 10ft-Uneven Surface(QC): 6 Walk 50ft with 2 Turns (QC): 6 Walk 150 ft (QC): 6 Gait Assistive Device: FWW Does the Pt use WC or Scooter?: No Stairs (FIM): 5 # of Steps: 4 1 Step (curb) (QC): 6 4 Steps (QC): 6 12 Steps (QC): 88 Picking up an Object (QC): 88 PT Plan Problem List Problem List: Activity Tolerance, Functional Strength, Safety, Transfer Treatment/Plan Treatment Plan: Continue Plan of Care Treatment Plan: Bed Mobility, Education, Functional Activity Kaylyn, Functional Strength, Group Therapy, Gait, Safety, Therapeutic Exercise, Transfers Treatment Duration: Apr 10, 2019 Frequency: At least 5 of 7 days/Wk (IRF) Estimated Hrs Per Day: 1.5 hours per day Patient and/or Family Agrees t: Yes Safety Risks/Education Patient Education: Transfer Techniques, Correct Positioning, Safety Issues Teaching Recipient: Patient Teaching Methods: Discussion Response to Teaching: Reinforcement Needed Time/GCodes Time In: 1455 Time Out: 1510 Total Billed Treatment Time: 15 Total Billed Treatment 1, FA (15m) G Codes Necessary: RAINE Adam NIGHT COORDINATOR Mar 27, 2019 16:15
--- NOTE | 2019-03-27 16:30 | NUR ---
Patient had been laying in bed with bed alarm on. Patient was able to get out of bed and to the nurses desk, where she was helped by a staff member back to her bed. Patient had incontinent episode and appeared more disoriented than at admission. Patient offered reassurance, new clothing obtained. Physician and Principal Process Engineer notified. New medication orders received and Tele Sitter initiated.
[2019-03-27] MEDS ORDERED: ALPRAZolam 0.5 MG (XANAX) TAB ONE (16:55)
[2019-03-27] MEDS ORDERED: risperiDONE 0.25 MG (RisperDAL) TAB ONE (16:56)
[2019-03-27] MEDS ORDERED: ALPRAZolam 0.5 MG (XANAX) TAB PO PRN (17:00)
[2019-03-27] MEDS: ENOXAPARIN 40 MG/0.4 ML (LOVENOX) SYR SC SCH (17:03)
[2019-03-27] MEDS: oxyCODONE/APAP 5/325MG (PERCOCET 5) TABLET PO PRN (17:04)
[2019-03-27] MEDS: risperiDONE 0.25 MG (RisperDAL) TAB PO SCH ×2 (17:04→20:33)
[2019-03-27 18:04] VITALS: BP 132/71
--- NOTE | 2019-03-27 19:37 | NUR ---
bedside report received from DALJIT CROOKS, assume care of pt, pt will not stay in room out to garcia with nursing supervision pt very confused wanting to go home
--- NOTE | 2019-03-27 20:15 | NUR ---
daughter blaire here will sit with pt. pt less agitated with daughter here
--- NOTE | 2019-03-27 20:30 | NUR ---
assessments & interventions completed, see assessments & interventions, back to bed, side rails up x4, bed alarm on
[2019-03-27] MEDS: ASPIRIN E.C. 81 MG (ECOTRIN) TAB PO SCH (20:32)
[2019-03-27] MEDS: SIMvastatin 20 MG (ZOCOR) TAB PO SCH (20:33)
[2019-03-27] MEDS: DONEPEZIL 5 MG (ARICEPT) TAB PO SCH (20:33)
--- NOTE | 2019-03-27 20:33 | NUR ---
refused miralax but took other laxatives & meds
[2019-03-27] MEDS: LORazepam 0.5 MG (ATIVAN) TABLET PO SCH (20:34)
[2019-03-27] MEDS: MEMANTINE 10 MG (NAMENDA) TABLET PO SCH (20:43)
[2019-03-27] MEDS: LATANOPROST 0.005% (XALATAN) OPHTH SOLN 2.5 ML OU SCH (20:44)
[2019-03-27] MEDS ORDERED: NON-FORMULARY MEDICATION 1 EA EA (Aripiprazole 5 MG) PO SCH (21:00)
[2019-03-27] MEDS ORDERED: MULTIVIT W/MINERALS TAB (THERAGRAN M) PO SCH (21:00)
[2019-03-27] MEDS ORDERED: NON-FORMULARY MEDICATION 1 EA EA (Sennosides/Docusate Sodium (Senna S Tablet) 1 TAB) PO SCH (21:00)
[2019-03-27] MEDS ORDERED: NON-FORMULARY MEDICATION 1 EA EA (Memantine HCl/Donepezil HCl (Namzaric 28 mg-10 mg Capsul PO SCH (21:00)
[2019-03-28] MEDS: oxyCODONE/APAP 5/325MG (PERCOCET 5) TABLET PO PRN (05:34)
--- NOTE | 2019-03-28 05:34 | NUR ---
c/o sternum pain level 8/10 on flacc scale, Percocet 1 tab po given
[2019-03-28 05:41] VITALS: BP 134/73
--- NOTE | 2019-03-28 06:11 | NUR ---
resting quietly in bed, pain level 0/10 on flacc scale
[2019-03-28 06:15] LABS: BASOPHILS % (AUTO) 1 % (0-10); EOSINOPHILS # (AUTO) 0.2 10^3/uL (0.0-0.3); EOSINOPHILS % (AUTO) 2 % (0-10); HEMATOCRIT 40 % (35-52); HEMOGLOBIN 12.7 G/DL (11.5-16.0); LYMPHOCYTES # (AUTO) 1.4 X 10^3 (1.0-4.0); LYMPHOCYTES % (AUTO) 19 % (12-44); MEAN CORPUSCULAR HEMOGLOBIN 28 PG (25-34); MEAN CORPUSCULAR HGB CONC 32 G/DL (32-36); MEAN CORPUSCULAR VOLUME 89 FL (80-99); MEAN PLATELET VOLUME 9.5 FL (7.4-10.4); MONOCYTES # (AUTO) 0.6 X 10^3 (0.0-1.0); MONOCYTES % (AUTO) 8 % (0-12); NEUTROPHILS # (AUTO) 5.3 X 10^3 (1.8-7.8); NEUTROPHILS % (AUTO) 70 % (42-75); PLATELET COUNT 185 10^3/uL (130-400); RED CELL DISTRIBUTION WIDTH 13.7 % (10.0-14.5); WHITE BLOOD COUNT 7.6 10^3/uL (4.3-11.0)
[2019-03-28 06:38] LABS: ALANINE AMINOTRANSFERASE 22 U/L (0-55); ALBUMIN 4.1 GM/DL (3.2-4.5); ALKALINE PHOSPHATASE 66 U/L (40-136); BILIRUBIN,TOTAL 0.5 MG/DL (0.1-1.0); BUN/CREATININE RATIO 17; CALCIUM 9.5 MG/DL (8.5-10.1); CARBON DIOXIDE 22 MMOL/L (21-32); CHLORIDE 105 MMOL/L (98-107); CREATININE SERUM 0.84 MG/DL (0.60-1.30); GFR ESTIMATED > 60; GLUCOSE 97 MG/DL (70-105); POTASSIUM 3.8 MMOL/L (3.6-5.0); SODIUM 140 MMOL/L (135-145); TOTAL PROTEIN 6.6 GM/DL (6.4-8.2)
[2019-03-28] MEDS: VENlafaxine XR 75 MG (EFFEXOR XR) CAP PO SCH (06:52)
[2019-03-28] MEDS: MULTIVIT W/MINERALS TAB (THERAGRAN M) PO SCH (06:53)
--- NOTE | 2019-03-28 07:15 | NUR ---
bedside report given to LINDA CROOKS
[2019-03-28] MEDS: LACTULOSE SYRUP 10GM/15ML (ENULOSE) 30ML UDC PO SCH ×2 (07:50→20:53)
[2019-03-28] MEDS: risperiDONE 0.25 MG (RisperDAL) TAB PO SCH ×2 (07:50→20:51)
[2019-03-28] MEDS: SENNA W/DOCUSATE (SENOKOT S) TABLET PO SCH ×2 (07:51→20:51)
[2019-03-28] MEDS: LOSARTAN 50 MG (COZAAR) TAB PO SCH (07:51)
[2019-03-28] MEDS: DONEPEZIL 5 MG (ARICEPT) TAB PO SCH ×2 (07:51→20:51)
[2019-03-28] MEDS: MEMANTINE 10 MG (NAMENDA) TABLET PO SCH ×2 (07:51→20:50)
[2019-03-28] MEDS: LORazepam 0.5 MG (ATIVAN) TABLET PO SCH ×3 (07:52→20:51)
[2019-03-28] MEDS: POLYETHYLENE GLYCOL 17 GM (MIRALAX) PACK PO SCH ×2 (07:52→20:53)
[2019-03-28] MEDS: DOCUSATE SODIUM 100 MG (COLACE) CAP PO SCH ×2 (07:52→20:51)
[2019-03-28] MEDS: OMEGA 3 (FISH OIL) 1000 MG CAP PO SCH (07:52)
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
[2019-03-28] MEDS ORDERED: NON-FORMULARY MEDICATION 1 EA EA (Lamotrigine 100 MG) PO SCH (09:00)
[2019-03-28] MEDS ORDERED: NON-FORMULARY MEDICATION 1 EA EA (Losartan Potassium 50 MG) PO SCH (09:00)
[2019-03-28] MEDS ORDERED: NON-FORMULARY MEDICATION 1 EA EA (Venlafaxine HCl (Venlafaxine HCl ER) 150 MG) PO SCH (09:00)
--- NOTE | 2019-03-28 09:16 | Physical Therapy Daily Note ---
PT Daily Note-Current Subjective Pt asleep in bed upon arrival. Pt's daughter is present, reported pt was restless last night. Pt agrees to PT but demonstrates confusion. Pain Numeric Pain Scale: 4 Location: Left Location Body Site: Hip Pain Description: Ache Mental Status Patient Orientation: Person, Confused Transfers Therapy Code Descriptions/Definitions Functional [place] Measure: 0=Not Assessed/NA 4=Minimal Assistance 1=Total Assistance 5=Supervision or Setup 2=Maximal Assistance 6=Modified [place] 3=Moderate Assistance 7=Complete [place] Therapy Quality Codes: 6 Independent with activity with or without an assistive device 5 Patient requires set up or clean up by helper. Patient completes activity by themselves 4 Supervision or touching assist (CGA). [place] provide cues , steadying assist 3 The helper provides less than half the effort to complete the activity 2 The helper provides more than half the effort to complete the activity 1 Dependent. The helper does all the effort to complete an activity 7 Patient refused to complete or attempt activity 9 The patient did not perform the activity before the current illness or injury 88 Not attempted due to Medical conditions or safety concerns Scootin Rollin Roll Left to Right (QC): 4 Supine to/from Sit: 4 Sit to/from Stand: 4 Sit to Lying (QC): 4 Sit to Stand (QC): 4 Weight Bearing Full Weight Bearing Full Weight Bearing Gait Training Does the Patient Walk?: Yes Gait (FIM): 4 Distance (FIM): 3=150 ft (150') Distance: 150' Walk 10 feet (QC): 4 Walk 50 ft with 2 Turns(QC): 4 Walk 150 ft (QC): 4 Gait Level of Assist: 4 Gait Persons Needed: 1 Gait Assistive Device: FWW Wheelchair Training Does the Pt Use a Wheelchair?: No Exercises NuStep Minutes: 10 NuStep Workload: 4 Treatments SCHEDULING ANALYST explains to pt & daughter about ARU expectations including ordering/eating breakfast before start of tx. Pt transfers to standing and ambulates in hallway. Pt uses NuStep for 10m at WL 4. Pt returns to room at end of tx with all needs met. Pt resting in recliner with call light in hand. Assessment Current Status: Good Progress Pt tolerates tx well although remains confused due to Dementia. PT Short Term Goals Short Term Goals Time Frame: Apr 01, 2019 Transfers (B,C,W/C) (FIM): 5 Gait (FIM): 5 PT Mcfp Goals Car Rental Manager Goals PT Car Rental Manager Goals Time Frame: Apr 10, 2019 Transfers (B,C,W/C) (FIM): 7 Sit to Lying (QC): 6 Lying-Sitting on Side/Bed(QC): 6 Sit to Stand (QC): 6 Roll Left to Right (QC): 6 Chair/Ssq-ec-Onqfb Xfer(QC): 6 Car Transfer (QC): 6 Does the Patient Walk: Yes Gait (FIM): 6 Gait distance (FIM): 3=150 ft Walk 10 feet (QC): 6 Walk 10ft-Uneven Surface(QC): 6 Walk 50ft with 2 Turns (QC): 6 Walk 150 ft (QC): 6 Gait Assistive Device: FWW Does the Pt use WC or Scooter?: No Stairs (FIM): 5 # of Steps: 4 1 Step (curb) (QC): 6 4 Steps (QC): 6 12 Steps (QC): 88 Picking up an Object (QC): 88 PT Plan Problem List Problem List: Activity Tolerance, Functional Strength, Safety, Balance, Gait, Transfer Treatment/Plan Treatment Plan: Continue Plan of Care Treatment Plan: Bed Mobility, Education, Functional Activity Kaylyn, Functional Strength, Group Therapy, Gait, Safety, Therapeutic Exercise, Transfers Treatment Duration: Apr 10, 2019 Frequency: At least 5 of 7 days/Wk (IRF) Estimated Hrs Per Day: 1.5 hours per day Patient and/or Family Agrees t: Yes Safety Risks/Education Patient Education: Gait Training, Transfer Techniques, Correct Positioning, Safety Issues Teaching Recipient: Patient Teaching Methods: Discussion Response to Teaching: Reinforcement Needed Time/GCodes Time In: 815 Time Out: 900 Total Billed Treatment Time: 45 Total Billed Treatment 1, GT (15m), EX (15m) & FA (15m) G Codes Necessary: No RAINE BRAN SCHEDULING ANALYST Mar 28, 2019 09:16
--- NOTE | 2019-03-28 11:04 | Occupational Ther Daily Note ---
OT Current Status-Daily Note Subjective Pt alert, sitting in recliner. Daughter present in room. Pt agrees to therapy. Mental Status/Objective Patient Orientation: Person, Place Therapy Code Descriptions/Definitions Functional [place] Measure: 0=Not Assessed/NA 4=Minimal Assistance 1=Total Assistance 5=Supervision or Setup 2=Maximal Assistance 6=Modified [place] 3=Moderate Assistance 7=Complete [place] Attachments: IV ADL-Treatment Sit<-->stand throughout session, min A. Min A for transfers, pt tends to 'plop' backwards and verbal cues needed for safe transfer. Min A for toilet transfer, CGA for toileting using FWW and grabbar. Pt doffed briefs with CGA in standing. Educated pt on dressing stick to doff socks, will need continued prompts due to confusion. CGA to transfer into/out of shower using FWW, grabbars and shower bench. Using long handle sponge, grabbars, shower bench and hand held shower pt required CGA in standing and verbal cues to use equipment needed to bath and dry self. Min A for donning shirt, pulling down in back, and bra, assist to po sition correctly. Mod A for donning lower body clothing, pt able to thread one foot then assist to thread the other with assist to hike underpants then pt able to hike pants. Education on sock aide, assist for set up, to pull sock on, will need continued cues. Assist to don shoes. Sitting at sink pt complete most of grooming by self then pt wanted to stand at sink to rinse after brushing and to brush hair, close SBA. Pt then ambulated back to recliner. After therapy, pt sitting in recliner with call light/phone in reach. All needs met in room. Daughter present in room. Therapy Code Descriptions/Definitions Functional [place] Measure: 0=Not Assessed/NA 4=Minimal Assistance 1=Total Assistance 5=Supervision or Setup 2=Maximal Assistance 6=Modified [place] 3=Moderate Assistance 7=Complete [place] Therapy Quality Codes: 6 Independent with activity with or without an assistive device 5 Patient requires set up or clean up by helper. Patient completes activity by themselves 4 Supervision or touching assist (CGA). [place] provide cues , steadying assist 3 The helper provides less than half the effort to complete the activity 2 The helper provides more than half the effort to complete the activity 1 Dependent. The helper does all the effort to complete an activity 7 Patient refused to complete or attempt activity 9 The patient did not perform the activity before the current illness or injury 88 Not attempted due to Medical conditions or safety concerns Grooming (FIM): 5 Oral Hygiene (QC): 5 Bathing (FIM): 4 Bathing Location: L Arm, R Arm, L Upper Leg, R Upper Leg, L Lower Leg (including foot), R Lower Leg (including foot), Chest, Abdomen, Buttocks, Perineal Area Shower/Bathe Self (QC): 3 Upper Body (FIM): 4 Upper Body Dressing (QC): 3 Lower Body Dressing (FIM): 3 Lower Body Dressing (QC): 2 On/Off Footwear (QC): 2 Toileting (FIM): 4 Toileting Hygiene (QC): 3 Transfers (B, C, W/C) (FIM): 4 Toilet/Commode Transfer (FIM): 4 Toilet Transfer (QC): 3 Shower Transfer(FIM): 4 OT Short Term Goals Short Term Goals Transfers (B,C,W/C) (FIM): 5 1=Demonstrate adherence to instructed precautions during ADL tasks. 2=Patient will verbalize/demonstrate understanding of assistive devices/modifications for ADL. 3=Patient will improve strength/tolerance for activity to enable patient to perform ADL's. OT Town Planner Goals Chcf Goals Time Frame: Apr 10, 2019 Eating (FIM): 6 Eating (QC): 6 Groomin Oral Hygiene (QC): 6 Bathing(FIM): 6 Shower/Bathe Self (QC): 5 Upper Body Dressing(FIM): 6 Upper Body Dressing (QC): 5 Lower Body Dressing(FIM): 6 Lower Body Dressing (QC): 5 On/Off Footwear (QC): 5 Toileting(FIM): 6 Toileting Hygiene (QC): 6 Transfers (B,C,W/C) (FIM): 6 Toilet/Commode Transfer(FIM): 6 Toilet/Commode Transfer (QC): 6 Shower Transfer(FIM): 5 Comprehension(FIM): 5 Expression (FIM): 5 Social Interaction(FIM): 5 Problem Solving(FIM): 5 Memory(FIM): 5 Additional Goals: 1-Demonstrate ADL Tasks, 2-Verbalize Understanding, 3-ImproveStrength/Kaylyn 1=Demonstrate adherence to instructed precautions during ADL tasks. 2=Patient will verbalize/demonstrate understanding of assistive devices/modifications for ADL. 3=Patient will improve strength/tolerance for activity to enable patient to perform ADL's. OT Education/Plan Problem List/Assessment Assessment: Decreased Activ Tolerance, Decreased Safety Aware, Impaired Cognition, Impaired Coordination, Impaired Self-Care Skills Discharge Recommendations Plan/Recommendations: Continue POC Treatment Plan/Plan of Care Patient would benefit from OT for education, treatment and training to promote independence in ADL's, mobility, safety and/or upper extremity function for ADL's. Plan of Care: ADL Retraining, Caregiver Training, Functional Mobility, Group Exercise/Act as Ind, UE Funct Exercise/Act Treatment Duration: Apr 10, 2019 Frequency: At least 5 of 7 days/Wk (IRF) Estimated Hrs Per Day: 1.5 hours per day Agreement: Yes Rehab Potential: Good Time/GCodes Start Time: 09:30 Stop Time: 10:45 Total Time Billed (hr/min): 75 Billed Treatment Time 1 visit-ADL 5 (75 min) MELISSA SEPULVEDA Mar 28, 2019 11:04
--- NOTE | 2019-03-28 11:29 | Speech Therapy Daily Note ---
Speech Daily Progress Note Subjective Date Seen by Provider: Mar 28, 2019 Time Seen by Provider: 00:30 The patient was resting in her recliner following her PT and OT. Objective The patient completed general memory tasks with 75% accuracy with mod to max verbal cues and/or repetitions. Assessment Assessment Current Status: Fair Progress Treatment Plan Continue Plan of Care Communication Comprehension: 5 Expression: 4 Social Cognition Social Interaction: 6 Problem Solvin Memory: 3 Speech Short Term Goals Short Term Goals Short Term Goals 1) The patient will complete memory tasks with 80% or greater with minimal cues. 2) The patient will complete problem solving tasks with 80% or greater with minimal cues. 3) The patient will complete safety awareness tasks with 80% or greater with minimal cues. Speech Penitentiary Goals Penitentiary Goals The patient will improve her safety awareness and independence in order to return home safely with her . Comprehension: 5 Expression: 5 Social Interaction: 5 Problem Solvin Memory: 5 Speech-Plan Patient/Family Goals Patient/Family Goals: The patient plans on returning home with her post rehab. Treatment Plan Speech Therapy Treatment Plan: Continue Plan of Care The patient was more alert today. Treatment Duration: Apr 05, 2019 Frequency: 5 times per week Estimated Hrs Per Day: .5 hour per day Rehab Potential: Good Barriers to Learning: Patient has Alzheimer's Pt/Family Agrees to Plan: Yes Safety Risks/Education Teaching Recipient: Patient, Family Teaching Methods: Demonstration, Discussion Response to Teaching: Verbalize Understanding, Return Demonstration Education Topics Provided: Continued safety within her room. Time Speech Therapy Time In: 10:45 Speech Therapy Time Out: 11:15 Total Billed Time: 30 Billed Treatment Time [address] Mar 28, 2019 11:29
[2019-03-28] MEDS: ENOXAPARIN 40 MG/0.4 ML (LOVENOX) SYR SC SCH (13:20)
[2019-03-28] MEDS: VENlafaxine 75 MG (EFFEXOR) TAB PO SCH (13:20)
--- NOTE | 2019-03-28 13:26 | NUR ---
PATIENT HAD ALREADY TAKEN 0.5 ATIVAN.
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
--- NOTE | 2019-03-28 15:40 | Physical Therapy Daily Note ---
PT Daily Note-Current Subjective Pt sitting in recliner upon arrival. Pt agrees to PT. Pain Numeric Pain Scale: 4 Location Body Site: Chest Pain Description: Ache, Tightness Comment: Pt reports tightness in chest/ribs when breathing. Mental Status Patient Orientation: Person, Confused Transfers Therapy Code Descriptions/Definitions Functional [place] Measure: 0=Not Assessed/NA 4=Minimal Assistance 1=Total Assistance 5=Supervision or Setup 2=Maximal Assistance 6=Modified [place] 3=Moderate Assistance 7=Complete [place] Therapy Quality Codes: 6 Independent with activity with or without an assistive device 5 Patient requires set up or clean up by helper. Patient completes activity by themselves 4 Supervision or touching assist (CGA). [place] provide cues , steadying assist 3 The helper provides less than half the effort to complete the activity 2 The helper provides more than half the effort to complete the activity 1 Dependent. The helper does all the effort to complete an activity 7 Patient refused to complete or attempt activity 9 The patient did not perform the activity before the current illness or injury 88 Not attempted due to Medical conditions or safety concerns Scootin Sit to/from Stand: 4 Sit to Stand (QC): 4 Weight Bearing Full Weight Bearing Full Weight Bearing Gait Training Does the Patient Walk?: Yes Gait (FIM): 4 Distance (FIM): 3=150 ft Distance: 150' Walk 10 feet (QC): 4 Walk 50 ft with 2 Turns(QC): 4 Walk 150 ft (QC): 4 Gait Level of Assist: 4 Gait Persons Needed: 1 Gait Assistive Device: FWW Wheelchair Training Does the Pt Use a Wheelchair?: No Exercises Seated Therapy Exercises: Ankle pumps, Long arc quads, Hip flexion, Kicking activity Seated Reps: 20 Treatments Pt transfers to standing and ambulates in hallway. After short RB, pt completes Seated Ex. Pt returns to room at end of tx to rest in recliner with all needs met, call light in hand. Assessment Current Status: Fair Progress Pt becomes more confused in afternoon. Pt demonstrates some Sundowners behaviors. PT Short Term Goals Short Term Goals Time Frame: Apr 01, 2019 Transfers (B,C,W/C) (FIM): 5 Gait (FIM): 5 PT Custodial Goals Neon Molder Goals PT Neon Molder Goals Time Frame: Apr 10, 2019 Transfers (B,C,W/C) (FIM): 7 Sit to Lying (QC): 6 Lying-Sitting on Side/Bed(QC): 6 Sit to Stand (QC): 6 Rollin Roll Left to Right (QC): 6 Chair/Wwf-xm-Qkhin Xfer(QC): 6 Car Transfer (QC): 6 Does the Patient Walk: Yes Gait (FIM): 6 Gait distance (FIM): 3=150 ft Walk 10 feet (QC): 6 Walk 10ft-Uneven Surface(QC): 6 Walk 50ft with 2 Turns (QC): 6 Walk 150 ft (QC): 6 Gait Assistive Device: FWW Does the Pt use WC or Scooter?: No Stairs (FIM): 5 # of Steps: 4 1 Step (curb) (QC): 6 4 Steps (QC): 6 12 Steps (QC): 88 Picking up an Object (QC): 88 PT Plan Problem List Problem List: Activity Tolerance, Functional Strength, Safety, Balance, Gait, Transfer Treatment/Plan Treatment Plan: Continue Plan of Care Treatment Plan: Bed Mobility, Education, Functional Activity Kaylyn, Functional Strength, Group Therapy, Gait, Safety, Therapeutic Exercise, Transfers Treatment Duration: Apr 10, 2019 Frequency: At least 5 of 7 days/Wk (IRF) Estimated Hrs Per Day: 1.5 hours per day Patient and/or Family Agrees t: Yes Safety Risks/Education Patient Education: Gait Training, Transfer Techniques, Correct Positioning, Safety Issues Teaching Recipient: Patient Teaching Methods: Discussion Response to Teaching: Reinforcement Needed Time/GCodes Time In: 1430 Time Out: 1500 Total Billed Treatment Time: 30 Total Billed Treatment 1, GT (15m) & EX (15m) G Codes Necessary: RAINE Adam APPRENTICE COOK Mar 28, 2019 15:40
[2019-03-28 15:44] VITALS: BP 114/70
[2019-03-28] MEDS: ASPIRIN E.C. 81 MG (ECOTRIN) TAB PO SCH (20:50)
[2019-03-28] MEDS: SIMvastatin 20 MG (ZOCOR) TAB PO SCH (20:51)
[2019-03-28] MEDS: LATANOPROST 0.005% (XALATAN) OPHTH SOLN 2.5 ML OU SCH (21:02)
[2019-03-29 05:07] VITALS: BP 169/85
[2019-03-29] MEDS: VENlafaxine XR 75 MG (EFFEXOR XR) CAP PO SCH (06:06)
[2019-03-29] MEDS: MULTIVIT W/MINERALS TAB (THERAGRAN M) PO SCH (06:06)
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
[2019-03-29 09:32] VITALS: BP 128/72
[2019-03-29] MEDS: POLYETHYLENE GLYCOL 17 GM (MIRALAX) PACK PO SCH ×2 (09:33→20:44)
[2019-03-29] MEDS: LACTULOSE SYRUP 10GM/15ML (ENULOSE) 30ML UDC PO SCH ×2 (09:35→20:44)
[2019-03-29] MEDS: LORazepam 0.5 MG (ATIVAN) TABLET PO SCH ×3 (09:35→20:45)
[2019-03-29] MEDS: MEMANTINE 10 MG (NAMENDA) TABLET PO SCH ×2 (09:35→20:46)
[2019-03-29] MEDS: OMEGA 3 (FISH OIL) 1000 MG CAP PO SCH (09:35)
[2019-03-29] MEDS: risperiDONE 0.25 MG (RisperDAL) TAB PO SCH ×2 (09:35→20:45)
[2019-03-29] MEDS: LOSARTAN 50 MG (COZAAR) TAB PO SCH (09:35)
[2019-03-29] MEDS: DONEPEZIL 5 MG (ARICEPT) TAB PO SCH ×2 (09:35→20:45)
[2019-03-29] MEDS: SENNA W/DOCUSATE (SENOKOT S) TABLET PO SCH ×2 (09:36→20:46)
[2019-03-29] MEDS: DOCUSATE SODIUM 100 MG (COLACE) CAP PO SCH ×2 (09:36→20:45)
--- NOTE | 2019-03-29 10:22 | Occupational Ther Daily Note ---
OT Current Status-Daily Note Subjective Pt sleeping in bed, woke to name. Pt confused on where she is, how she got here, why she is here and if her knows that she is here. THOMAS reoriented pt throughout therapy. Pt stated the she feels like her head is in the clouds. Pt pleasant and continues to ask questions to orient herself. Mental Status/Objective Patient Orientation: Person Therapy Code Descriptions/Definitions Functional [place] Measure: 0=Not Assessed/NA 4=Minimal Assistance 1=Total Assistance 5=Supervision or Setup 2=Maximal Assistance 6=Modified [place] 3=Moderate Assistance 7=Complete [place] Attachments: IV ADL-Treatment Pt declines shower, agrees to sponge bath. After set up, pt completed sponge bath sitting on toilet with supervision to help pt sequence steps due to confusion this morning. Pt does not remember using AE for lower body dressing, reoriented pt to equipment. Pt completed toilet transfer with CGA and CGA for toileting when standing to hike pants over hips. Min A to don shirt, assist to pull shirt down. Pt attempted to don pants over feet, assist to get pant leg over toes then pt able to complete the rest with CGA. Pt c/o back pain throughout session, reported to nrsg. Pt able to complete grooming sitting/standing at sink with close SBA. After therapy, pt lying in bed with call light/phone in reach. All needs met in room. Therapy Code Descriptions/Definitions Functional [place] Measure: 0=Not Assessed/NA 4=Minimal Assistance 1=Total Assistance 5=Supervision or Setup 2=Maximal Assistance 6=Modified [place] 3=Moderate Assistance 7=Complete [place] Therapy Quality Codes: 6 Independent with activity with or without an assistive device 5 Patient requires set up or clean up by helper. Patient completes activity by themselves 4 Supervision or touching assist (CGA). [place] provide cues , steadying assist 3 The helper provides less than half the effort to complete the activity 2 The helper provides more than half the effort to complete the activity 1 Dependent. The helper does all the effort to complete an activity 7 Patient refused to complete or attempt activity 9 The patient did not perform the activity before the current illness or injury 88 Not attempted due to Medical conditions or safety concerns Grooming (FIM): 5 Oral Hygiene (QC): 4 Upper Body (FIM): 4 Upper Body Dressing (QC): 3 Lower Body Dressing (FIM): 3 Lower Body Dressing (QC): 3 On/Off Footwear (QC): 3 Toileting (FIM): 4 Toileting Hygiene (QC): 4 Transfers (B, C, W/C) (FIM): 4 Toilet/Commode Transfer (FIM): 4 Toilet Transfer (QC): 3 OT Short Term Goals Short Term Goals Transfers (B,C,W/C) (FIM): 5 1=Demonstrate adherence to instructed precautions during ADL tasks. 2=Patient will verbalize/demonstrate understanding of assistive devices/modifications for ADL. 3=Patient will improve strength/tolerance for activity to enable patient to perform ADL's. OT Operations Analyst Goals Operations Analyst Goals Time Frame: Apr 10, 2019 Eating (FIM): 6 Eating (QC): 6 Groomin Oral Hygiene (QC): 6 Bathing(FIM): 6 Shower/Bathe Self (QC): 5 Upper Body Dressing(FIM): 6 Upper Body Dressing (QC): 5 Lower Body Dressing(FIM): 6 Lower Body Dressing (QC): 5 On/Off Footwear (QC): 5 Toileting(FIM): 6 Toileting Hygiene (QC): 6 Transfers (B,C,W/C) (FIM): 6 Toilet/Commode Transfer(FIM): 6 Toilet/Commode Transfer (QC): 6 Shower Transfer(FIM): 5 Comprehension(FIM): 5 Expression (FIM): 5 Social Interaction(FIM): 5 Problem Solving(FIM): 5 Memory(FIM): 5 Additional Goals: 1-Demonstrate ADL Tasks, 2-Verbalize Understanding, 3- ImproveStrength/Kaylyn 1=Demonstrate adherence to instructed precautions during ADL tasks. 2=Patient will verbalize/demonstrate understanding of assistive devices/modifications for ADL. 3=Patient will improve strength/tolerance for activity to enable patient to perform ADL's. OT Education/Plan Problem List/Assessment Assessment: Decreased Activ Tolerance, Impaired Cognition, Impaired Self-Care Skills Discharge Recommendations Plan/Recommendations: Continue POC Treatment Plan/Plan of Care Patient would benefit from OT for education, treatment and training to promote independence in ADL's, mobility, safety and/or upper extremity function for ADL's. Plan of Care: ADL Retraining, Caregiver Training, Functional Mobility, Group Ex ercise/Act as Ind, UE Funct Exercise/Act Treatment Duration: Apr 10, 2019 Frequency: At least 5 of 7 days/Wk (IRF) Estimated Hrs Per Day: 1.5 hours per day Agreement: Yes Rehab Potential: Good Time/GCodes Start Time: 08:00 Stop Time: 09:00 Total Time Billed (hr/min): 60 Billed Treatment Time 1 visit-ADL 4 (60 min) MELISSA SEPULVEDA Mar 29, 2019 10:22
--- NOTE | 2019-03-29 12:04 | Physical Therapy Daily Note ---
PT Daily Note-Current Subjective Pt. and daughter share their living situation and great supportive relationship. Pt. denies pain until supine exercises then has min pain left back in to left leg Pain Numeric Pain Scale: 4 Location: Left Location Body Site: Back Pain Description: Ache Mental Status Patient Orientation: Person, Place, Time, Situation Transfers Therapy Code Descriptions/Definitions Functional [place] Measure: 0=Not Assessed/NA 4=Minimal Assistance 1=Total Assistance 5=Supervision or Setup 2=Maximal Assistance 6=Modified [place] 3=Moderate Assistance 7=Complete [place] Therapy Quality Codes: 6 Independent with activity with or without an assistive device 5 Patient requires set up or clean up by helper. Patient completes activity by themselves 4 Supervision or touching assist (CGA). [place] provide cues , steadying assist 3 The helper provides less than half the effort to complete the activity 2 The helper provides more than half the effort to complete the activity 1 Dependent. The helper does all the effort to complete an activity 7 Patient refused to complete or attempt activity 9 The patient did not perform the activity before the current illness or injury 88 Not attempted due to Medical conditions or safety concerns Transfers (B, C, W/C) (FIM): 5 Scootin Rollin Supine to/from Sit: 5 Sit to/from Stand: 5 Bed to/from Chair: 5 Weight Bearing Full Weight Bearing Full Weight Bearing Gait Training Does the Patient Walk?: Yes Gait (FIM): 5 Distance (FIM): 3=150 ft (165x2) Gait Level of Assist: 5 Gait Persons Needed: 1 Gait Assistive Device: FWW needs direction and instruction to look up etc Stair Training Stair Training: Handrails/: 2 handrails Stairs (FIM): 5 #of Steps: 4 Stairs: Pattern: Reciprocal Level of Assist: 5 household exception Exercises Supine Ex: Ankle pumps, Quad Set, Rolling, Glut sets, Heel Slides, Short Arc Quads, Scooting, Hip abd/add Supine Reps: 15 Seated Therapy Exercises: Ankle pumps, Sit to stand, Long arc quads, Hip flexion Seated Reps: 15 NuStep Minutes: 10 NuStep Workload: 3 Assessment Current Status: Good Progress PT Short Term Goals Short Term Goals Time Frame: Apr 01, 2019 Transfers (B,C,W/C) (FIM): 5 Gait (FIM): 5 PT Fpc Goals Fpc Goals PT Fpc Goals Time Frame: Apr 10, 2019 Transfers (B,C,W/C) (FIM): 7 Sit to Lying (QC): 6 Lying-Sitting on Side/Bed(QC): 6 Sit to Stand (QC): 6 Rollin Roll Left to Right (QC): 6 Chair/Sao-dq-Hsnuk Xfer(QC): 6 Car Transfer (QC): 6 Does the Patient Walk: Yes Gait (FIM): 6 Gait distance (FIM): 3=150 ft Walk 10 feet (QC): 6 Walk 10ft-Uneven Surface(QC): 6 Walk 50ft with 2 Turns (QC): 6 Walk 150 ft (QC): 6 Gait Assistive Device: FWW Does the Pt use WC or Scooter?: No Stairs (FIM): 5 # of Steps: 4 1 Step (curb) (QC): 6 4 Steps (QC): 6 12 Steps (QC): 88 Picking up an Object (QC): 88 PT Plan Treatment/Plan Treatment Plan: Continue Plan of Care Treatment Plan: Bed Mobility, Education, Functional Activity Kaylyn, Functional Strength, Group Therapy, Gait, Safety, Therapeutic Exercise, Transfers Treatment Duration: Apr 10, 2019 Frequency: At least 5 of 7 days/Wk (IRF) Estimated Hrs Per Day: 1.5 hours per day Patient and/or Family Agrees t: Yes Safety Risks/Education Patient Education: Gait Training, Transfer Techniques, Steps, Correct Positioning, Disease Process, Safety Issues Teaching Recipient: Patient Teaching Methods: Demonstration, Discussion Response to Teaching: Verbalize Understanding, Return Demonstration, Reinforcement Needed Time/GCodes Time In: 1115 Time Out: 1200 Total Billed Treatment Time: 45 Total Billed Treatment 1,Gt15m,EX20m,FA10m G Codes Necessary: FELICITA Diaz RESIDENTIAL ADVISOR Mar 29, 2019 12:04
[2019-03-29] MEDS: VENlafaxine 75 MG (EFFEXOR) TAB PO SCH (14:04)
[2019-03-29] MEDS: ENOXAPARIN 40 MG/0.4 ML (LOVENOX) SYR SC SCH (14:04)
--- NOTE | 2019-03-29 15:44 | Speech Therapy Daily Note ---
Speech Daily Progress Note Subjective Date Seen by Provider: Mar 29, 2019 Time Seen by Provider: 00:30 The patient was resting in her bed this afternoon when I entered her room. Objective The patient completed a series of memory tasks related to her daily routine with 70% accuracy given mod to max verbal and/or visual cues. Assessment Assessment Current Status: Fair Progress Treatment Plan Continue Plan of Care Communication Comprehension: 5 Expression: 4 Social Cognition Social Interaction: 6 Problem Solvin Memory: 3 Speech Short Term Goals Short Term Goals Short Term Goals 1) The patient will complete memory tasks with 80% or greater with minimal cues. 2) The patient will complete problem solving tasks with 80% or greater with minimal cues. 3) The patient will complete safety awareness tasks with 80% or greater with minimal cues. Speech Senior Care Goals Machine Setter Goals The patient will improve her safety awareness and independence in order to return home safely with her . Comprehension: 5 Expression: 5 Social Interaction: 5 Problem Solvin Memory: 5 Speech-Plan Patient/Family Goals Patient/Family Goals: The patient plans on returning home with her post rehab. Treatment Plan Speech Therapy Treatment Plan: Continue Plan of Care The patient is always pleasant and cooperative. Treatment Duration: Apr 05, 2019 Frequency: 5 times per week Estimated Hrs Per Day: .5 hour per day Rehab Potential: Good Barriers to Learning: Alzheimer's diagnosis Pt/Family Agrees to Plan: Yes Safety Risks/Education Teaching Recipient: Patient Teaching Methods: Demonstration, Discussion Response to Teaching: Verbalize Understanding, Return Demonstration, Reinforcement Needed Education Topics Provided: Continued safety within her room, discussed the alarms that sound when she tries to get up. Time Speech Therapy Time In: 14:30 Speech Therapy Time Out: 15:00 Total Billed Time: 30 Billed Treatment Time 1ISAAC BETHANIA ST Mar 29, 2019 15:44
--- NOTE | 2019-03-29 16:00 | Therapy Group Daily Note ---
Therapy Daily Group Note Patient Education Topic Other List Below (ARU description/expectations) Exercises LE Seated Exercise, UE Exercise Session Ratio (pt:therapist): 4:1 Goal of Session: Education on ARU Expectations, UE/LE Strengthing Goal Met for this Session: Yes Pt Benefit of Group: Contributions to Others, Increased Functional Strength, Improved Cognition, Recognition of Peers, Socialization Other/Notes Pt. participated in group PT OT session this date. Pt. ambulated using FWW to and from group. Pt required reorientation of being a pt at [facility], pt was adamant that she was not a pt she was just waiting on her daughter. Pt. was pleasant, introduced self and participated in pt. lead exercises from illustrated exercise cards. Pts. rolled large foam dice to determine the # of reps the exercise they demonstrated would require. Pt's were jovial sharing their names, home town as well as their favorite refreshing drink. ARU education was covered with regard to expectations , schedule, 3 hr requirement and goals. Pt in room after group, lying in bed. Call light/phone in reach. All needs met in room. Start Time: 12:45 Stop Time: 14:00 Total Billed Treatment Time: 75 Total Billed Treatment 1-GRP MELISSA SEPULVEDA Mar 29, 2019 16:00
[2019-03-29 17:06] VITALS: BP 145/78
[2019-03-29] MEDS: LATANOPROST 0.005% (XALATAN) OPHTH SOLN 2.5 ML OU SCH (20:44)
[2019-03-29] MEDS: ASPIRIN E.C. 81 MG (ECOTRIN) TAB PO SCH (20:45)
[2019-03-29] MEDS: SIMvastatin 20 MG (ZOCOR) TAB PO SCH (20:45)
[2019-03-30 05:50] VITALS: BP 129/72
[2019-03-30] MEDS: VENlafaxine XR 75 MG (EFFEXOR XR) CAP PO SCH (06:38)
[2019-03-30] MEDS: MULTIVIT W/MINERALS TAB (THERAGRAN M) PO SCH (06:38)
[2019-03-30] MEDS: LORazepam 0.5 MG (ATIVAN) TABLET PO SCH ×3 (08:38→20:47)
[2019-03-30] MEDS: DONEPEZIL 5 MG (ARICEPT) TAB PO SCH ×2 (08:38→20:48)
[2019-03-30] MEDS: POLYETHYLENE GLYCOL 17 GM (MIRALAX) PACK PO SCH ×2 (08:39→20:09)
[2019-03-30] MEDS: DOCUSATE SODIUM 100 MG (COLACE) CAP PO SCH ×2 (08:39→20:09)
[2019-03-30] MEDS: LACTULOSE SYRUP 10GM/15ML (ENULOSE) 30ML UDC PO SCH ×2 (08:39→20:09)
[2019-03-30] MEDS: MEMANTINE 10 MG (NAMENDA) TABLET PO SCH ×2 (08:39→20:48)
[2019-03-30] MEDS: risperiDONE 0.25 MG (RisperDAL) TAB PO SCH ×2 (08:39→20:47)
[2019-03-30] MEDS: LOSARTAN 50 MG (COZAAR) TAB PO SCH (08:39)
[2019-03-30] MEDS: SENNA W/DOCUSATE (SENOKOT S) TABLET PO SCH ×2 (08:39→20:10)
[2019-03-30] MEDS: ACETAMINOPHEN 500 MG TAB (TYLENOL) PO PRN (08:43)
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
[2019-03-30] MEDS: OMEGA 3 (FISH OIL) 1000 MG CAP PO SCH (13:29)
[2019-03-30] MEDS: ENOXAPARIN 40 MG/0.4 ML (LOVENOX) SYR SC SCH (13:30)
[2019-03-30] MEDS: VENlafaxine 75 MG (EFFEXOR) TAB PO SCH (13:30)
--- NOTE | 2019-03-30 13:47 | Physical Therapy Daily Note ---
PT Daily Note-Current Subjective Pt denies pain. Pt very pleasant and agreeable throughout treatment session. Daughter present. Mental Status Patient Orientation: Person, Place Transfers Therapy Code Descriptions/Definitions Functional [place] Measure: 0=Not Assessed/NA 4=Minimal Assistance 1=Total Assistance 5=Supervision or Setup 2=Maximal Assistance 6=Modified [place] 3=Moderate Assistance 7=Complete [place] Therapy Quality Codes: 6 Independent with activity with or without an assistive device 5 Patient requires set up or clean up by helper. Patient completes activity by themselves 4 Supervision or touching assist (CGA). [place] provide cues , steadying as sist 3 The helper provides less than half the effort to complete the activity 2 The helper provides more than half the effort to complete the activity 1 Dependent. The helper does all the effort to complete an activity 7 Patient refused to complete or attempt activity 9 The patient did not perform the activity before the current illness or injury 88 Not attempted due to Medical conditions or safety concerns Weight Bearing Full Weight Bearing Full Weight Bearing Treatments Pt seen for ther ex in bed: AP, QS, Heel slide, SAQ, Hip abd x 20 each. Transfers mod (I) all levels. Pt donned shoes with set up. Pt amb with FWW and CGA x 125ft. Pt back to bed per request with call light. Assessment Current Status: Good Progress Pt sabrina very well. No signs of pain. Mod (I) mobility. Pt resting with all needs met. Call light in reach. PT Short Term Goals Short Term Goals Time Frame: Apr 01, 2019 Transfers (B,C,W/C) (FIM): 5 Gait (FIM): 5 PT Senior Care Goals Associate Merchant Goals PT Associate Merchant Goals Time Frame: Apr 10, 2019 Transfers (B,C,W/C) (FIM): 7 Sit to Lying (QC): 6 Lying-Sitting on Side/Bed(QC): 6 Sit to Stand (QC): 6 Rollin Roll Left to Right (QC): 6 Chair/Jpx-xm-Vvfej Xfer(QC): 6 Car Transfer (QC): 6 Does the Patient Walk: Yes Gait (FIM): 6 Gait distance (FIM): 3=150 ft Walk 10 feet (QC): 6 Walk 10ft-Uneven Surface(QC): 6 Walk 50ft with 2 Turns (QC): 6 Walk 150 ft (QC): 6 Gait Assistive Device: FWW Does the Pt use WC or Scooter?: No Stairs (FIM): 5 # of Steps: 4 1 Step (curb) (QC): 6 4 Steps (QC): 6 12 Steps (QC): 88 Picking up an Object (QC): 88 PT Plan Treatment/Plan Treatment Plan: Continue Plan of Care Treatment Plan: Bed Mobility, Education, Functional Activity Kaylyn, Functional Strength, Group Therapy, Gait, Safety, Therapeutic Exercise, Transfers Treatment Duration: Apr 10, 2019 Frequency: At least 5 of 7 days/Wk (IRF) Estimated Hrs Per Day: 1.5 hours per day Patient and/or Family Agrees t: Yes Time/GCodes Time In: 840 Time Out: 904 Total Billed Treatment Time: 24 Total Billed Treatment 1, ther ex 14', Gait 10' LIGIA MCPHERSON CPTA Mar 30, 2019 13:47
[2019-03-30 15:49] VITALS: BP 120/67
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
[2019-03-30] MEDS: LATANOPROST 0.005% (XALATAN) OPHTH SOLN 2.5 ML OU SCH (20:47)
[2019-03-30] MEDS: SIMvastatin 20 MG (ZOCOR) TAB PO SCH (20:48)
[2019-03-30] MEDS: ASPIRIN E.C. 81 MG (ECOTRIN) TAB PO SCH (20:48)
[2019-03-31 05:40] VITALS: BP 152/76
--- NOTE | 2019-03-31 06:00 | NUR ---
pt amb with steady gait sba assist with walker. no c/o. pt daughter at bedside. pt rested most of noc with eyes closed resp reg et easy
[2019-03-31] MEDS: VENlafaxine XR 75 MG (EFFEXOR XR) CAP PO SCH (06:40)
[2019-03-31] MEDS: MULTIVIT W/MINERALS TAB (THERAGRAN M) PO SCH (06:40)
[2019-03-31 08:00] VITALS: BP 144/81
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
[2019-03-31] MEDS: DONEPEZIL 5 MG (ARICEPT) TAB PO SCH ×2 (08:02→19:50)
[2019-03-31] MEDS: risperiDONE 0.25 MG (RisperDAL) TAB PO SCH ×2 (08:02→19:50)
[2019-03-31] MEDS: LOSARTAN 50 MG (COZAAR) TAB PO SCH (08:02)
[2019-03-31] MEDS: MEMANTINE 10 MG (NAMENDA) TABLET PO SCH ×2 (08:03→19:50)
[2019-03-31] MEDS: OMEGA 3 (FISH OIL) 1000 MG CAP PO SCH (08:03)
[2019-03-31] MEDS: LACTULOSE SYRUP 10GM/15ML (ENULOSE) 30ML UDC PO SCH ×2 (08:05→19:44)
[2019-03-31] MEDS: SENNA W/DOCUSATE (SENOKOT S) TABLET PO SCH ×2 (08:05→19:45)
[2019-03-31] MEDS: LORazepam 0.5 MG (ATIVAN) TABLET PO SCH ×3 (08:05→19:50)
[2019-03-31] MEDS: DOCUSATE SODIUM 100 MG (COLACE) CAP PO SCH ×2 (08:05→19:44)
[2019-03-31] MEDS: POLYETHYLENE GLYCOL 17 GM (MIRALAX) PACK PO SCH ×2 (08:05→19:44)
[2019-03-31] MEDS: ACETAMINOPHEN 500 MG TAB (TYLENOL) PO PRN ×2 (11:01→16:42)
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
[2019-03-31] MEDS: VENlafaxine 75 MG (EFFEXOR) TAB PO SCH (13:10)
[2019-03-31] MEDS: ENOXAPARIN 40 MG/0.4 ML (LOVENOX) SYR SC SCH (13:12)
[2019-03-31 17:02] VITALS: BP 144/76
[2019-03-31] MEDS: ASPIRIN E.C. 81 MG (ECOTRIN) TAB PO SCH (19:50)
[2019-03-31] MEDS: SIMvastatin 20 MG (ZOCOR) TAB PO SCH (19:51)
[2019-03-31] MEDS: LATANOPROST 0.005% (XALATAN) OPHTH SOLN 2.5 ML OU SCH (19:52)
[2019-04-01 05:43] VITALS: BP 144/63
[2019-04-01] MEDS: VENlafaxine XR 75 MG (EFFEXOR XR) CAP PO SCH (06:05)
[2019-04-01] MEDS: MULTIVIT W/MINERALS TAB (THERAGRAN M) PO SCH (06:06)
[2019-04-01] MEDS: DONEPEZIL 5 MG (ARICEPT) TAB PO SCH ×2 (08:44→20:20)
[2019-04-01] MEDS: OMEGA 3 (FISH OIL) 1000 MG CAP PO SCH (08:45)
[2019-04-01] MEDS: risperiDONE 0.25 MG (RisperDAL) TAB PO SCH ×2 (08:45→20:35)
[2019-04-01] MEDS: LORazepam 0.5 MG (ATIVAN) TABLET PO SCH ×3 (08:45→20:21)
[2019-04-01] MEDS: MEMANTINE 10 MG (NAMENDA) TABLET PO SCH ×2 (08:45→20:21)
[2019-04-01] MEDS: LOSARTAN 50 MG (COZAAR) TAB PO SCH (08:45)
[2019-04-01] MEDS: SENNA W/DOCUSATE (SENOKOT S) TABLET PO SCH ×2 (08:47→20:35)
[2019-04-01] MEDS: DOCUSATE SODIUM 100 MG (COLACE) CAP PO SCH ×2 (08:47→20:26)
[2019-04-01] MEDS: POLYETHYLENE GLYCOL 17 GM (MIRALAX) PACK PO SCH ×2 (08:47→20:35)
[2019-04-01] MEDS: LACTULOSE SYRUP 10GM/15ML (ENULOSE) 30ML UDC PO SCH ×2 (08:47→20:35)
--- NOTE | 2019-04-01 08:50 | Occupational Ther Daily Note ---
OT Current Status-Daily Note Subjective Pt alert, in bathroom with nrsg. Pt requires cues to initiate tasks. Confusion of situation apparent during tasks. Daughter present in room. No c/o pain at this time, only fatigue. Mental Status/Objective Patient Orientation: Person, Place, Time, Situation Therapy Code Descriptions/Definitions Functional [place] Measure: 0=Not Assessed/NA 4=Minimal Assistance 1=Total Assistance 5=Supervision or Setup 2=Maximal Assistance 6=Modified [place] 3=Moderate Assistance 7=Complete [place] ADL-Treatment Do to confusion and different surroundings, pt has difficulty problem solving and sequencing tasks. Pt requires verbal cues to initiate or find items. Daughter set clothes out prior to shower. After therapy, pt sitting in recliner with call light/phone in reach. All needs met in room. Therapy Code Descriptions/Definitions Functional [place] Measure: 0=Not Assessed/NA 4=Minimal Assistance 1=Total Assistance 5=Supervision or Setup 2=Maximal Assistance 6=Modified [place] 3=Moderate Assistance 7=Complete [place] Therapy Quality Codes: 6 Independent with activity with or without an assistive device 5 Patient requires set up or clean up by helper. Patient completes activity by themselves 4 Supervision or touching assist (CGA). [place] provide cues , steadying assist 3 The helper provides less than half the effort to complete the activity 2 The helper provides more than half the effort to complete the activity 1 Dependent. The helper does all the effort to complete an activity 7 Patient refused to complete or attempt activity 9 The patient did not perform the activity before the current illness or injury 88 Not attempted due to Medical conditions or safety concerns Eating (FIM): 5 (Pt able to open containers/packages and use regular utensils. Verbal cues to initiate opening and using items for seasoning on tray.) Eating (QC): 5 Grooming (FIM): 5 (Pt able to stand and complete tasks though verbal cues to initiate task.) Oral Hygiene (QC): 5 Bathing (FIM): 5 (Assist to set up for bathing. Pt able to complete bathing by self using grabbar, hand held shower and shower bench. Pt stood to complete most of shower. No LOB noted.) Bathing Location: L Arm, R Arm, L Upper Leg, R Upper Leg, L Lower Leg (including foot), R Lower Leg (including foot), Chest, Abdomen, Buttocks, Perineal Area Shower/Bathe Self (QC): 5 Upper Body (FIM): 4 (Assist to turn bra around. Pt able to complete all other upper body dressing by self. Daughter retrieved clothing.) Upper Body Dressing (QC): 4 Lower Body Dressing (FIM): 4 (Pt completed doffing pants and socks. Donned own pants, R sock and L sock with sock aide (verbal/physical cues to use sock aide). Assist to don L shoe and pt donned R shoe by self.) Lower Body Dressing (QC): 3 On/Off Footwear (QC): 3 Toileting (FIM): 6 (Pt able to complete toileting using grabbar and FWW for stability in standing.) Toileting Hygiene (QC): 6 Transfers (B, C, W/C) (FIM): 6 (Using FWW) Toilet/Commode Transfer (FIM): 6 (Using FWW and grabbars.) Toilet Transfer (QC): 6 Shower Transfer(FIM): 6 (Using grabbars, shower bench and FWW.) OT Short Term Goals Short Term Goals Transfers (B,C,W/C) (FIM): 5 1=Demonstrate adherence to instructed precautions during ADL tasks. 2=Patient will verbalize/demonstrate understanding of assistive devices/modifications for ADL. 3=Patient will improve strength/tolerance for activity to enable patient to per form ADL's. OT Fpc Goals Fpc Goals Time Frame: Apr 10, 2019 Eating (FIM): 6 (not met) Eating (QC): 6 (not met) Groomin (not met) Oral Hygiene (QC): 6 (not met) Bathing(FIM): 6 (not met) Shower/Bathe Self (QC): 5 (met-04/01/19) Upper Body Dressing(FIM): 6 (not met) Upper Body Dressing (QC): 5 (not met) Lower Body Dressing(FIM): 6 (not met) Lower Body Dressing (QC): 5 (not met) On/Off Footwear (QC): 5 (not met) Toileting(FIM): 6 (met-04/01/19) Toileting Hygiene (QC): 6 (met-04/01/19) Transfers (B,C,W/C) (FIM): 6 (met-04/01/19) Toilet/Commode Transfer(FIM): 6 (met-04/01/19) Toilet/Commode Transfer (QC): 6 (met-04/01/19) Shower Transfer(FIM): 5 (met-04/01/19) Comprehension(FIM): 5 Expression (FIM): 5 Social Interaction(FIM): 5 Problem Solving(FIM): 5 Memory(FIM): 5 Additional Goals: 1-Demonstrate ADL Tasks, 2-Verbalize Understanding, 3-Imp roveStrength/Kaylyn 1=Demonstrate adherence to instructed precautions during ADL tasks. 2=Patient will verbalize/demonstrate understanding of assistive devices/modifications for ADL. 3=Patient will improve strength/tolerance for activity to enable patient to perform ADL's. OT Education/Plan Problem List/Assessment Assessment: Decreased Safety Aware, Impaired Cognition, Impaired Self-Care Skills Discharge Recommendations Plan/Recommendations: Continue POC Therapy D/C Recommendations: Occupational Therapy Home Care Equpiment Recommendations-D/C: Sock Aide Treatment Plan/Plan of Care Patient would benefit from OT for education, treatment and training to promote independence in ADL's, mobility, safety and/or upper extremity function for ADL's. Plan of Care: ADL Retraining, Caregiver Training, Functional Mobility, Group Exercise/Act as Ind, UE Funct Exercise/Act Treatment Duration: Apr 10, 2019 Frequency: At least 5 of 7 days/Wk (IRF) Estimated Hrs Per Day: 1.5 hours per day Agreement: Yes Rehab Potential: Good Time/GCodes Start Time: 08:00 Stop Time: 09:00 Total Time Billed (hr/min): 60 Billed Treatment Time 1 visit-ADL 4 (60 min) MELISSA SEPULVEDA Apr 01, 2019 08:50
--- NOTE | 2019-04-01 09:00 | NUR ---
MEDICATED WITH TYLENOL FOR LEFT HIP PAIN. DAUGHTER STATES PATIENT IS STILL NOT MOBILE SHE WAS LAN SUPPORT SPECIALIST DUE TO LEFT HIP PAIN.
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
[2019-04-01] MEDS: ACETAMINOPHEN 500 MG TAB (TYLENOL) PO PRN ×2 (09:12→15:30)
--- NOTE | 2019-04-01 10:45 | NUR ---
Pastoral care visit, with pts daughter and Remote Pilot Operator, Remote Pilot Operator appears close to family and supportive. will monitor for needs.
--- NOTE | 2019-04-01 12:11 | Physical Therapy Daily Note ---
PT Daily Note-Current Subjective Pt. agrees to Rx. Smiling , feels she is improved Pain Location: No Pain Reported Mental Status Patient Orientation: Person, Place, Time, Situation Transfers Therapy Code Descriptions/Definitions Functional [place] Measure: 0=Not Assessed/NA 4=Minimal Assistance 1=Total Assistance 5=Supervision or Setup 2=Maximal Assistance 6=Modified [place] 3=Moderate Assistance 7=Complete [place] Therapy Quality Codes: 6 Independent with activity with or without an assistive device 5 Patient requires set up or clean up by helper. Patient completes activity by themselves 4 Supervision or touching assist (CGA). [place] provide cues , steadying assist 3 The helper provides less than half the effort to complete the activity 2 The helper provides more than half the effort to complete the activity 1 Dependent. The helper does all the effort to complete an activity 7 Patient refused to complete or attempt activity 9 The patient did not perform the activity before the current illness or injury 88 Not attempted due to Medical conditions or safety concerns Transfers (B, C, W/C) (FIM): 6 Scootin Rollin Supine to/from Sit: 6 Sit to/from Stand: 6 Bed to/from Chair: 6 Car Transfer (QC): 6 Weight Bearing Full Weight Bearing Full Weight Bearing Gait Training Does the Patient Walk?: Yes Gait (FIM): 5 Distance (FIM): 3=150 ft (200x3) Gait Level of Assist: 5 Gait Persons Needed: 0 Gait Assistive Device: FWW pt. needs directed to destination only Stair Training Stair Training: Handrails/: 2 handrails Stairs (FIM): 5 #of Steps: 4 Stairs: Pattern: Reciprocal Level of Assist: 5 household exception Exercises Supine Ex: Bridging (x2), Ankle pumps, Quad Set, Rolling, Glut sets, Heel Slides, Short Arc Quads, Scooting, Hip abd/add Supine Reps: 12 Seated Therapy Exercises: Ankle pumps, Sit to stand, Long arc quads, Hip flexion, Hip abd/add Seated Reps: 10 (x2) NuStep Minutes: 12 NuStep Workload: 4 Assessment Current Status: Good Progress PT Short Term Goals Short Term Goals Time Frame: Apr 01, 2019 Transfers (B,C,W/C) (FIM): 5 Gait (FIM): 5 PT Group Home Goals Wire Threader Goals PT Wire Threader Goals Time Frame: Apr 10, 2019 Transfers (B,C,W/C) (FIM): 7 Sit to Lying (QC): 6 Lying-Sitting on Side/Bed(QC): 6 Sit to Stand (QC): 6 Rollin Roll Left to Right (QC): 6 Chair/Qxf-mv-[place] Xfer(QC): 6 Car Transfer (QC): 6 Does the Patient Walk: Yes Gait (FIM): 6 Gait distance (FIM): 3=150 ft Walk 10 feet (QC): 6 Walk 10ft-Uneven Surface(QC): 6 Walk 50ft with 2 Turns (QC): 6 Walk 150 ft (QC): 6 Gait Assistive Device: FWW Does the Pt use WC or Scooter?: No Stairs (FIM): 5 # of Steps: 4 1 Step (curb) (QC): 6 4 Steps (QC): 6 12 Steps (QC): 88 Picking up an Object (QC): 88 PT Plan Treatment/Plan Treatment Plan: Continue Plan of Care Treatment Plan: Bed Mobility, Education, Functional Activity Kaylyn, Functional Strength, Group Therapy, Gait, Safety, Therapeutic Exercise, Transfers Treatment Duration: Apr 10, 2019 Frequency: At least 5 of 7 days/Wk (IRF) Estimated Hrs Per Day: 1.5 hours per day Patient and/or Family Agrees t: Yes Safety Risks/Education Patient Education: Gait Training, Transfer Techniques, Steps, Correct Positioning, Disease Process, Safety Issues Teaching Recipient: Patient Teaching Methods: Demonstration, Discussion Response to Teaching: Verbalize Understanding, Return Demonstration, Reinforcement Needed Time/GCodes Time In: 1100 Time Out: 1145 Total Billed Treatment Time: 45 Total Billed Treatment 1,GT15m,EX20m,FA10m G Codes Necessary: FELICITA Diaz RECREATION ACTIVITIES COORDINATOR Apr 01, 2019 12:10
[2019-04-01] MEDS: VENlafaxine 75 MG (EFFEXOR) TAB PO SCH (13:17)
[2019-04-01] MEDS: ENOXAPARIN 40 MG/0.4 ML (LOVENOX) SYR SC SCH (14:18)
--- NOTE | 2019-04-01 15:00 | Therapy Group Daily Note ---
Therapy Daily Group Note Patient Education Topic Incontinence, Other List Below (dehydration) Exercises Other (kegels) Session Ratio (pt:therapist): 4:1 Goal of Session: Education on ARU Expectations, Other (list) (understanding of dehydration and incontinence) Goal Met for this Session: Yes Pt Benefit of Group: Contributions to Others, Socialization, Other (understanding of dehydration and incontinence) Other/Notes Pt. participated in group PT OT session this date. Pt. came and went with FWW and SBA. Pt. was social introducing herself and was very social. Pts. were educated in the causes signs and symptoms of incontinence and dehydration as well as prevention. Pts. were introduced to incont briefs and their role in above topics. Pts were instructed in Kegel exercises . Pt. to room after yadi Tee at hand. Start Time: 13:00 Stop Time: 14:00 Total Billed Treatment Time: 60 Total Billed Treatment 1,GRP FELICITA MORALES CYBER DEFENSE INCIDENT RESPONDER Apr 01, 2019 15:00
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
--- NOTE | 2019-04-01 15:57 | Speech Therapy Daily Note ---
Speech Daily Progress Note Subjective Date Seen by Provider: Apr 01, 2019 Time Seen by Provider: 00:30 The patient was resting in her recliner when I entered her room. She states she feels she is getting stronger. Objective The patient completed memory tasks related to her daily needs with 75% accuracy given moderate to maximum verbal cues. Assessment Assessment Current Status: Good Progress Treatment Plan Continue Plan of Care Communication Comprehension: 5 Expression: 4 Social Cognition Social Interaction: 6 Problem Solvin Memory: 3 Speech Short Term Goals Short Term Goals Short Term Goals 1) The patient will complete memory tasks with 80% or greater with minimal cues. 2) The patient will complete problem solving tasks with 80% or greater with minimal cues. 3) The patient will complete safety awareness tasks with 80% or greater with minimal cues. Speech Group Home Goals Group Home Goals The patient will improve her safety awareness and independence in order to return home safely with her . Comprehension: 5 Expression: 5 Social Interaction: 5 Problem Solvin Memory: 5 Speech-Plan Patient/Family Goals Patient/Family Goals: The patient plans on returning home with family post rehab. Treatment Plan Speech Therapy Treatment Plan: Continue Plan of Care The patient is making slight progress toward meeting her goals. Treatment Duration: Apr 05, 2019 Frequency: 5 times per week Estimated Hrs Per Day: .5 hour per day Rehab Potential: Good Barriers to Learning: The patient has Alzheimer's Pt/Family Agrees to Plan: Yes Safety Risks/Education Teaching Recipient: Patient Teaching Methods: Discussion Response to Teaching: Verbalize Understanding Education Topics Provided: Continued safety within her room. Time Speech Therapy Time In: 15:30 Speech Therapy Time Out: 16:00 Total Billed Time: 30 Billed Treatment Time 1[address] Apr 01, 2019 15:57
[2019-04-01 17:09] VITALS: BP 143/75
--- NOTE | 2019-04-01 18:00 | NUR ---
REMAINS CONFUSED AND IMPULSIVE AND NEEDS TELE SITTER AND BED/CHAIR EXIT ALARMS ON.
--- NOTE | 2019-04-01 19:08 | NUR ---
bedside report received from TIFFANY CROOKS, assume care of pt, up in the chair with chair alarm on
[2019-04-01] MEDS: LATANOPROST 0.005% (XALATAN) OPHTH SOLN 2.5 ML OU SCH (20:19)
[2019-04-01] MEDS: SIMvastatin 20 MG (ZOCOR) TAB PO SCH (20:21)
[2019-04-01] MEDS: ASPIRIN E.C. 81 MG (ECOTRIN) TAB PO SCH (20:21)
--- NOTE | 2019-04-01 20:30 | NUR ---
daughter here back to bed with side rails up x4 & bed alarm on
--- NOTE | 2019-04-01 21:00 | NUR ---
assessments & interventions completed, see assessments & interventions, states no pain, daughter at bedside tele sitter in place
[2019-04-02 06:10] VITALS: BP 169/74
[2019-04-02] MEDS: MULTIVIT W/MINERALS TAB (THERAGRAN M) PO SCH (06:31)
[2019-04-02] MEDS: VENlafaxine XR 75 MG (EFFEXOR XR) CAP PO SCH (06:31)
--- NOTE | 2019-04-02 07:34 | NUR ---
BEDSIDE REPORT GIVEN TO TFIFANY CROOKS
[2019-04-02] MEDS: risperiDONE 0.25 MG (RisperDAL) TAB PO SCH ×2 (08:53→20:28)
[2019-04-02] MEDS: LORazepam 0.5 MG (ATIVAN) TABLET PO SCH ×3 (08:53→20:27)
[2019-04-02] MEDS: DONEPEZIL 5 MG (ARICEPT) TAB PO SCH ×2 (08:53→20:27)
[2019-04-02] MEDS: OMEGA 3 (FISH OIL) 1000 MG CAP PO SCH (08:53)
[2019-04-02] MEDS: LOSARTAN 50 MG (COZAAR) TAB PO SCH (08:53)
[2019-04-02] MEDS: MEMANTINE 10 MG (NAMENDA) TABLET PO SCH ×2 (08:53→20:29)
[2019-04-02] MEDS: DOCUSATE SODIUM 100 MG (COLACE) CAP PO SCH ×2 (08:55→20:33)
[2019-04-02] MEDS: POLYETHYLENE GLYCOL 17 GM (MIRALAX) PACK PO SCH ×2 (08:55→20:34)
[2019-04-02] MEDS: LACTULOSE SYRUP 10GM/15ML (ENULOSE) 30ML UDC PO SCH ×2 (08:55→20:34)
[2019-04-02] MEDS: SENNA W/DOCUSATE (SENOKOT S) TABLET PO SCH ×2 (08:56→20:34)
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
[2019-04-02] MEDS: ACETAMINOPHEN 500 MG TAB (TYLENOL) PO PRN (09:03)
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
--- NOTE | 2019-04-02 11:54 | Physical Therapy Daily Note ---
PT Daily Note-Current Subjective Pt sitting in recliner upon arrival. Pt agrees to PT for FIM scoring for D/C tomorrow. Pain Location: No Pain Reported Mental Status Patient Orientation: Person, Confused, Place Transfers Therapy Code Descriptions/Definitions Functional [place] Measure: 0=Not Assessed/NA 4=Minimal Assistance 1=Total Assistance 5=Supervision or Setup 2=Maximal Assistance 6=Modified [place] 3=Moderate Assistance 7=Complete [place] Therapy Quality Codes: 6 Independent with activity with or without an assistive device 5 Patient requires set up or clean up by helper. Patient completes activity by themselves 4 Supervision or touching assist (CGA). [place] provide cues , steadying assist 3 The helper provides less than half the effort to complete the activity 2 The helper provides more than half the effort to complete the activity 1 Dependent. The helper does all the effort to complete an activity 7 Patient refused to complete or attempt activity 9 The patient did not perform the activity before the current illness or injury 88 Not attempted due to Medical conditions or safety concerns Transfers (B, C, W/C) (FIM): 6 Scootin Rollin Roll Left to Right (QC): 6 Supine to/from Sit: 6 Sit to/from Stand: 6 Sit to Lying (QC): 6 Sit to Stand (QC): 6 Chair/Ace-up-Dnupz Xfer(QC): 6 Bed to/from Chair: 6 Car Transfer (QC): 6 Pt is Mod I but safety concerns due to pt needing reminders for sequencing. Pt also needs reminder to take FWW with her for transfers and ambulation. Weight Bearing Full Weight Bearing Full Weight Bearing Gait Training Does the Patient Walk?: Yes Gait (FIM): 6 Distance (FIM): 3=150 ft Distance: 250' Walk 10 feet (QC): 6 Walk 50 ft with 2 Turns(QC): 6 Walk 150 ft (QC): 6 Walking 10ft/uneven surface-QC: 6 Gait Level of Assist: 6 Gait Persons Needed: 1 Gait Assistive Device: FWW Pt needs VC to take FWW with her during transfers and ambulation. Wheelchair Training Does the Pt Use a Wheelchair?: No Stair Training Stair Training: Handrails/: 2 handrails Stairs (FIM): 6 #of Steps: 12 1 Step (curb) (QC): 6 4 Steps (QC): 6 12 Steps (QC): 6 Stairs: Pattern: Reciprocal Level of Assist: 6 RING ATTACHER gives VC for sequencing. Balance Picking up an Object (QC): 88 Special Test Comments RING ATTACHER has safety concerns with sequencing and balance with bending over. Exercises NuStep Minutes: 15 NuStep Workload: 5 Treatments Pt completes FIM scoring items including: bed mobility, transfers including car transfer, ambulation including across varying surface, and stairs. Pt did not attempt picking up object from floor due to safety concern. Pt returns to room to rest at end of tx. Assessment Current Status: Good Progress Pt is able to complete tasks during tx although pt needs VC for social awareness deficit. Pt continues to try to ambulate w/o FWW. PT Short Term Goals Short Term Goals Time Frame: Apr 01, 2019 Transfers (B,C,W/C) (FIM): 5 Gait (FIM): 5 PT Mcfp Goals Mcfp Goals PT Mcfp Goals Time Frame: Apr 10, 2019 Transfers (B,C,W/C) (FIM): 7 Sit to Lying (QC): 6 Lying-Sitting on Side/Bed(QC): 6 Sit to Stand (QC): 6 Rollin Roll Left to Right (QC): 6 Chair/Xcd-oy-Dwyku Xfer(QC): 6 Car Transfer (QC): 6 Does the Patient Walk: Yes Gait (FIM): 6 Gait distance (FIM): 3=150 ft Walk 10 feet (QC): 6 Walk 10ft-Uneven Surface(QC): 6 Walk 50ft with 2 Turns (QC): 6 Walk 150 ft (QC): 6 Gait Assistive Device: FWW Does the Pt use WC or Scooter?: No Stairs (FIM): 5 # of Steps: 4 1 Step (curb) (QC): 6 4 Steps (QC): 6 12 Steps (QC): 88 Picking up an Object (QC): 88 PT Plan Problem List Problem List: Activity Tolerance, Safety, Balance Treatment/Plan Treatment Plan: Continue Plan of Care Treatment Plan: Bed Mobility, Education, Functional Activity Kaylyn, Functional Strength, Group Therapy, Gait, Safety, Therapeutic Exercise, Transfers Treatment Duration: Apr 10, 2019 Frequency: At least 5 of 7 days/Wk (IRF) Estimated Hrs Per Day: 1.5 hours per day Patient and/or Family Agrees t: Yes Safety Risks/Education Patient Education: Gait Training, Transfer Techniques, Steps, Correct Positioning, Safety Issues Teaching Recipient: Patient Teaching Methods: Discussion Response to Teaching: Reinforcement Needed Time/GCodes Time In: 1100 Time Out: 1200 Total Billed Treatment Time: 60 Total Billed Treatment 1, FA x3 (45m) & EX (15m) G Codes Necessary: RAINE Adam RING ATTACHER Apr 02, 2019 11:54
[2019-04-02] MEDS: VENlafaxine 75 MG (EFFEXOR) TAB PO SCH (12:44)
[2019-04-02] MEDS: ENOXAPARIN 40 MG/0.4 ML (LOVENOX) SYR SC SCH (12:48)
--- NOTE | 2019-04-02 14:44 | Physical Therapy Daily Note ---
PT Daily Note-Current Subjective Pt sitting in recliner upon arrival. Pt's daughter present. Pt agrees to PT. Pain Location: No Pain Reported Mental Status Patient Orientation: Person, Confused, Place Transfers Therapy Code Descriptions/Definitions Functional [place] Measure: 0=Not Assessed/NA 4=Minimal Assistance 1=Total Assistance 5=Supervision or Setup 2=Maximal Assistance 6=Modified [place] 3=Moderate Assistance 7=Complete [place] Therapy Quality Codes: 6 Independent with activity with or without an assistive device 5 Patient requires set up or clean up by helper. Patient completes activity by themselves 4 Supervision or touching assist (CGA). [place] provide cues , steadying assist 3 The helper provides less than half the effort to complete the activity 2 The helper provides more than half the effort to complete the activity 1 Dependent. The helper does all the effort to complete an activity 7 Patient refused to complete or attempt activity 9 The patient did not perform the activity before the current illness or injury 88 Not attempted due to Medical conditions or safety concerns Weight Bearing Full Weight Bearing Full Weight Bearing Exercises Supine Ex: Ankle pumps, Quad Set, Heel Slides, Short Arc Quads, Straight leg raise, Hip abd/add Supine Reps: 15 Seated Therapy Exercises: Ankle pumps, Long arc quads, Hip flexion, Kicking activity Seated Reps: 15 Treatments PROJECT ARCHIVIST gave pt HEP as well as gave instruction to pt & daughter on how to complete HEP. Pt resting in recliner after EX. Pt needs assistance with ambulating to restroom. Pt has urinated self and PROJECT ARCHIVIST gives instruction to pt on how to complete don/doff of undergarments & pants from seated position. Pt has all needs met, call light next to pt. Assessment Current Status: Good Progress Pt fatigues easily and continues to demonstrate confusion. PT Short Term Goals Short Term Goals Time Frame: Apr 01, 2019 Transfers (B,C,W/C) (FIM): 5 Gait (FIM): 5 PT Certified Substance Abuse Counselor Goals Halfway Goals PT Certified Substance Abuse Counselor Goals Time Frame: Apr 10, 2019 Transfers (B,C,W/C) (FIM): 7 Sit to Lying (QC): 6 Lying-Sitting on Side/Bed(QC): 6 Sit to Stand (QC): 6 Rollin Roll Left to Right (QC): 6 Chair/Iuk-ms-Dqzmw Xfer(QC): 6 Car Transfer (QC): 6 Does the Patient Walk: Yes Gait (FIM): 6 Gait distance (FIM): 3=150 ft Walk 10 feet (QC): 6 Walk 10ft-Uneven Surface(QC): 6 Walk 50ft with 2 Turns (QC): 6 Walk 150 ft (QC): 6 Gait Assistive Device: FWW Does the Pt use WC or Scooter?: No Stairs (FIM): 5 # of Steps: 4 1 Step (curb) (QC): 6 4 Steps (QC): 6 12 Steps (QC): 88 Picking up an Object (QC): 88 PT Plan Problem List Problem List: Activity Tolerance, Safety Treatment/Plan Treatment Plan: Continue Plan of Care Treatment Plan: Bed Mobility, Education, Functional Activity Kaylyn, Functional Strength, Group Therapy, Gait, Safety, Therapeutic Exercise, Transfers Treatment Duration: Apr 10, 2019 Frequency: At least 5 of 7 days/Wk (IRF) Estimated Hrs Per Day: 1.5 hours per day Patient and/or Family Agrees t: Yes Safety Risks/Education Patient Education: Correct Positioning, Safety Issues Teaching Recipient: Patient Teaching Methods: Discussion Response to Teaching: Reinforcement Needed Time/GCodes Time In: 1315 Time Out: 1335 Total Billed Treatment Time: 20 Total Billed Treatment 1, EX (20m) G Codes Necessary: RAINE Adam PROJECT ARCHIVIST Apr 02, 2019 14:43
[2019-04-02 17:01] VITALS: BP 152/74
--- NOTE | 2019-04-02 19:04 | NUR ---
bedside report received from TIFFANY CROOKS, assume care of pt
[2019-04-02] MEDS: SIMvastatin 20 MG (ZOCOR) TAB PO SCH (20:28)
[2019-04-02] MEDS: ASPIRIN E.C. 81 MG (ECOTRIN) TAB PO SCH (20:28)
[2019-04-02] MEDS: LATANOPROST 0.005% (XALATAN) OPHTH SOLN 2.5 ML OU SCH (20:31)
--- NOTE | 2019-04-02 21:00 | NUR ---
assessments & interventions completed, see assessments & interventions, daughter at bedside, side rails up x4, bed alarm on, tele sitter in place
[2019-04-03] MEDS: ACETAMINOPHEN 500 MG TAB (TYLENOL) PO PRN (01:14)
--- NOTE | 2019-04-03 01:14 | NUR ---
c/o back pain level 6/10 on numeric scale, Tylenol 500mg given
--- NOTE | 2019-04-03 01:45 | NUR ---
resting quietly in bed, pain level 0/10 on flacc scale
[2019-04-03 06:00] VITALS: BP 151/72
[2019-04-03] MEDS: MULTIVIT W/MINERALS TAB (THERAGRAN M) PO SCH (06:26)
[2019-04-03] MEDS: VENlafaxine XR 75 MG (EFFEXOR XR) CAP PO SCH (06:26)
--- NOTE | 2019-04-03 07:10 | NUR ---
bedside report given to NICOLE CROOSK
[2019-04-03] MEDS ORDERED: OXYC1TAB87 PO (08:15)
[2019-04-03] MEDS ORDERED: DOCU100C37 PO (08:15)
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
--- NOTE | 2019-04-03 08:17 | D/C HH Face to Face Order ---
D/C Face to Face Orders Instructions for Patient Via [facility], Patient Instructions/FollowUp: PCP in 1 week Physician to follow Patient: PCP Discharge Diet for Home: No Restrictions Patient Problems: L1 compression fracture Dementia Patient Data-Allergies,Ht & Wt Patient Allergies: Coded Allergies: Tetanus Vaccines and Toxoid (Unverified Allergy, Unknown, 03/26/19) cyclobenzaprine (Verified Allergy, Unknown, 03/27/19) hydrocodone (Unverified Allergy, Unknown, 03/26/19) Uncoded Allergies: TAPE (Allergy, Unknown, 03/26/19) Height (Feet): 5 Height (Inches): 5.00 Weight (Pounds): 173 Weight (Ounces): 4.5 Home Health Need/Face to Face Date of Face to Face: Apr 03, 2019 Clinical Findings: Generalized weakness and fatigue, Muscle weakness, Pain with ambulation, Unsteady gait I have seen Pt [id number]: Yes Discharged To: Home Diagnosis/Conditions: L1 compression fracture Dementia Patient is Homebound due to: CognItive deficits, Trisha fall risk due to instabilty, Muscle weakness, Pain w/ambulation Homebound Status Due to the above stated illness, injury or surgical procedure (medical condition or diagnosis) and associated clinical findings, the patient is homebound because of his/her inability to leave home except with aid of a supportive device and/or person AND leaving the home requires a considerable and taxing effort or is medically contraindicated. Pt req the following assistanc: [facility] Health Nursing Orders Home Health Services Order: Nursing Services, Bomb Squad Commander-Evaluate & Treat, Physical Therapy-Evaluate & Treat Certify Stmt I certify that this patient is under my care and that I, a nurse practitioner or a physician; a housing assistant working with me, had a face to face encounter that - meets the physician face to face encounter requirements with this patient as dated. CHRIS KELLY DO Apr 03, 2019 08:17
[2019-04-03] MEDS: DOCUSATE SODIUM 100 MG (COLACE) CAP PO SCH (08:33)
[2019-04-03] MEDS: LACTULOSE SYRUP 10GM/15ML (ENULOSE) 30ML UDC PO SCH (08:34)
[2019-04-03] MEDS: SENNA W/DOCUSATE (SENOKOT S) TABLET PO SCH (08:34)
[2019-04-03] MEDS: POLYETHYLENE GLYCOL 17 GM (MIRALAX) PACK PO SCH (08:34)
[2019-04-03] MEDS: DONEPEZIL 5 MG (ARICEPT) TAB PO SCH (08:49)
[2019-04-03] MEDS: LORazepam 0.5 MG (ATIVAN) TABLET PO SCH (08:49)
[2019-04-03] MEDS: LOSARTAN 50 MG (COZAAR) TAB PO SCH (08:49)
[2019-04-03] MEDS: OMEGA 3 (FISH OIL) 1000 MG CAP PO SCH (08:49)
[2019-04-03] MEDS: risperiDONE 0.25 MG (RisperDAL) TAB PO SCH (08:50)
[2019-04-03] MEDS: MEMANTINE 10 MG (NAMENDA) TABLET PO SCH (08:54)
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
--- NOTE | 2019-04-03 12:58 | Therapy Team Discharge Summary ---
Therapy Discharge Summary Discharge Recommendations Date of Discharge Apr 03, 2019 at 09:40 Therapy D/C Recommendations: Home w/ Family Support, Occupational Therapy Home Care, Physical Therapy Home Care Occupational Therapy Pt. was seen to increase overall strength and independence with daily tasks. Pt. required mod I with toileting and ADL transfers at discharge, but required set up for dressing at discharge. Pt. discharging home with family assist to continue working toward increased overall strength and independence. Recommend home health OT. Decreased Safety Aware, Impaired Cognition PT Usp Goals Usp Goals PT Press Assistant Goals Time Frame: Apr 10, 2019 Transfers (B,C,W/C) (FIM): 7 (scored a 6) Roll Left to Right (QC): 6 Sit to Lying (QC): 6 Lying-Sitting on Side/Bed(QC): 6 Sit to Stand (QC): 6 Chair/Ooa-us-Iglci Xfer(QC): 6 Car Transfer (QC): 6 Does the Patient Walk: Yes Gait (FIM): 6 (met) Gait distance (FIM): 3=150 ft Walk 10 feet (QC): 6 Walk 10ft-Uneven Surface(QC): 6 Walk 50ft with 2 Turns (QC): 6 Walk 150 ft (QC): 6 Gait Assistive Device: FWW Does the Pt use WC or Scooter?: No Stairs (FIM): 5 (exceeded) # of Steps: 4 1 Step (curb) (QC): 6 4 Steps (QC): 6 12 Steps (QC): 88 Picking up an Object (QC): 88 OT Usp Goals Usp Goals Time Frame: Apr 10, 2019 Eating (FIM): 6 (met-04/02/19) Eating (QC): 6 (met-04/02/19) Oral Hygiene (QC): 6 (met-04/02/19) Grooming(FIM): 6 (met-04/02/19) Bathing(FIM): 6 (met-04/02/19) Shower/Bathe Self (QC): 5 (met-04/01/19) Upper Body Dressing(FIM): 6 (not met) Upper Body Dressing (QC): 5 (met-04/02/19) Lower Body Dressing(FIM): 6 (not met) Lower Body Dressing (QC): 5 (met-04/02/19) On/Off Footwear (QC): 5 (met-04/02/19) Toileting(FIM): 6 (met-04/01/19) Toileting Hygiene (QC): 6 (met-04/01/19) Transfers (B,C,W/C) (FIM): 6 (met-04/01/19) Toilet/Commode Transfer(FIM): 6 (met-04/01/19) Toilet/Commode Transfer (QC): 6 (met-04/01/19) Shower Transfer(FIM): 5 (met-04/01/19) Comprehension(FIM): 5 Expression (FIM): 5 Social Interaction(FIM): 5 Problem Solving(FIM): 5 Memory(FIM): 5 Additional Goals: 1-Demonstrate ADL Tasks, 2-Verbalize Understanding, 3- ImproveStrength/Kaylyn 1=Demonstrate adherence to instructed precautions during ADL tasks. 2=Patient will verbalize/demonstrate understanding of assistive devices/mo difications for ADL. 3=Patient will improve strength/tolerance for activity to enable patient to perform ADL's. Speech Press Assistant Goals Usp Goals The patient will improve her safety awareness and independence in order to return home safely with her . Comprehension: 5 Expression: 5 Social Interaction: 5 Problem Solvin Memory: 5 SMILEY BRYAN OT Apr 03, 2019 12:58
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
== END 2019-04-03 09:40 | disposition home health service (06) | DRG 561 ==
PROVIDERS: ADMIT Internal Medicine; ATTEND Internal Medicine
DX: S32.019D Unspecified fracture of first lumbar vertebra, subsequent encounter for fracture with routine healing (principal); F03.90 Unspecified dementia, unspecified severity, without behavioral disturbance, psychotic disturbance, mood disturbance, and anxiety; K59.03 Drug induced constipation; I10 Essential (primary) hypertension; F41.9 Anxiety disorder, unspecified; F31.9 Bipolar disorder, unspecified; E78.5 Hyperlipidemia, unspecified; Z90.710 Acquired absence of both cervix and uterus; V48.6XXD Car passenger injured in noncollision transport accident in traffic accident, subsequent encounter
CPT/HCPCS: 36415; 80053; 85025

== ENCOUNTER → 2019-09-16 | Outpatient (CLI) | payer MEDICARE ==
[~2019-09-16] MED LIST changes: +DOCU100C37 PO
--- NOTE | 2019-09-16 10:57 | Diagnostic Imaging Report ---
INDICATION: Routine screening. COMPARISON: 07/11/2018 and 06/22/2017. TECHNIQUE: 2D and 3D bilateral screening mammography was performed with CAD. FINDINGS: Both breasts are heterogeneously dense, limiting the sensitivity of mammography. The area of circumscribed nodularity in the retroareolar left breast appears stable. The outer portion of the left breast previously noted appears stable. No new mass or malignant appearing microcalcifications are seen. The axillae are unremarkable. IMPRESSION: No mammographic features suspicious for malignancy are identified. ACR BI-RADS Category 2: Benign findings. Result letter will be mailed to the patient. Note: At least 10% of breast cancer is not imaged by mammography. Dictated by: Dictated on workstation # [id number]
== END ==
LOC: RAD 08:38
PROVIDERS: ATTEND Family Medicine
DX: Z12.31 Encounter for screening mammogram for malignant neoplasm of breast (principal)
CPT/HCPCS: 77067

== ENCOUNTER → 2021-08-12 | Outpatient (CLI) | payer MEDICARE ==
[~2021-08-12] MED LIST changes: -ARIP5TAB20 PO; +ARIP5TAB57 PO; +ASPI-1238 PO; -ASPI-983 PO; -LAMO100T PO; +LAMO100T5 PO; +MULT-567 PO; -MULT1TAB69 PO; +SIMV20TA26 PO; -SIMV20TA3 PO
--- NOTE | 2021-08-12 17:29 | Diagnostic Imaging Report ---
EXAMINATION: Right knee radiographs, 4 views. COMPARISON: None. HISTORY: 75-year-old female, right knee pain. FINDINGS: There is moderate patellofemoral compartment joint space loss with tiny patellofemoral compartment osteophytes. There is no identified knee joint effusion. The medial and lateral compartment joint spaces are well preserved. The patella is normally positioned. There is no identified acute fracture. The bones appear potentially demineralized. IMPRESSION: 1. Moderate patellofemoral compartment osteoarthritis without knee joint effusion. 2. The bones appear potentially demineralized. Dictated by: Dictated on workstation # [id number]
== END ==
LOC: ORTHO 15:17
PROVIDERS: ATTEND Orthopaedic Surgery
DX: M17.11 Unilateral primary osteoarthritis, right knee (principal)
CPT/HCPCS: 73564; 99202

== ENCOUNTER → 2022-08-26 | Outpatient (CLI) | payer MEDICARE ==
--- NOTE | 2022-08-26 13:45 | Diagnostic Imaging Report ---
INDICATION: Dysphagia. The procedure was performed in conjunction with speech pathology. Video fluoroscopy was performed during the swallowing of barium in multiple consistencies. 1.2 minutes of fluoroscopic time was utilized. The patient ingested thin as well as puree, mechanical soft and solid consistencies. There was some mild early spillover to the level of the piriforms with thin liquids. No penetration or aspiration was observed with any consistency. There was normal laryngeal elevation and epiglottic tilt. IMPRESSION: Mild spillover with thin liquids. No laryngeal penetration or aspiration was observed. Dictated by: Dictated on workstation # [id number]
== END ==
LOC: RAD 10:19
PROVIDERS: ATTEND Nurse Practitioner Community Health
DX: R09.89 Other specified symptoms and signs involving the circulatory and respiratory systems (principal); R13.10 Dysphagia, unspecified
CPT/HCPCS: 74230

== ENCOUNTER → 2023-06-19 | Outpatient (CLI) | payer MEDICARE ==
[2023-06-19 19:12] LABS: BACTERIA,URINE FEW /HPF; BILIRUBIN,URINE NEGATIVE (NEGATIVE); CLARITY,URINE CLEAR; COLOR,URINE YELLOW; GLUCOSE, URINE (UA) NEGATIVE (NEGATIVE); KETONES,URINE 1+ (NEGATIVE); LEUKOCYTE ESTERASE ,URINE 1+ (NEGATIVE); NITRITE,URINE NEGATIVE (NEGATIVE); PH,URINE 5.5 (5-9); PROTEIN,URINE 1+ (NEGATIVE); SQUAMOUS EPITHELIAL CELL,UR 0-2 /HPF
== END ==
LOC: LABNPT 18:42
PROVIDERS: ATTEND Internal Medicine
DX: R41.82 Altered mental status, unspecified (principal); W18.30XA Fall on same level, unspecified, initial encounter
CPT/HCPCS: 81000; 87088